=== PATIENT | male | born 1940 | race Caucasian/White ===

== ENCOUNTER 2017-12-05 23:53 | Emergency (ER) | payer MEDICARE ==
[2017-12-06 00:04] VITALS: TEMP 97
[2017-12-06] MEDS ORDERED: NITROGLYCERIN SL TABS 0.4 MG TAB SUBLINGUAL STA (00:11)
--- NOTE | 2017-12-06 00:18 | ED ---
Extremity Problem HPI - General Source: patient, family Mode of arrival: ambulatory Limitations: no limitations - History of Present Illness Complaint: extremity pain Onset/Timin -: hour(s) Location: left, upper extremity History of Same: No Radiation: none Quality: aching Consistency: intermittent Improves with: nothing Worsens with: nothing Associated Symptoms: denies other symptoms <Osmel Ramirez - Last Filed: 12/06/17 01:01> <Luiz Thornton - Last Filed: 12/06/17 04:36> - General Chief complaint: Extremity Problem,Nontraumatic Stated complaint: L Arm/Shoulder Pain Time Seen by Provider: 12/06/17 00:06 - History of Present Illness Initial comments: This patient is a 77-year-old man presenting to be evaluated for pain which is affecting his left upper extremity from the shoulder to approximately the elbow. He states that the pain came on around 10 PM tonight while he was watching in [employer] program on television. He characterizes the pain as an aching, dull, and intermittent. He states that it lasts about 30-60 seconds at a time. He has not noted any factors that reproduce the pain, nor any worsening or relieving factors. He has not had any associated symptoms. The pain is not present during my evaluation. He does state that he had seen urology here, Dr. Jaramillo, and had a stress test a number of months ago that was normal. He does state that his father, sister, and brother have had heart attacks. The patient has no smoking history. Patient states that he took 2 Tylenol at home without any real change. He did take a full size aspirin without noting much difference. Mr. Alvarado furthermore denies any recent injury. He states that he has not done any heavy lifting with the left arm. He did play pickle ball this morning but states she uses his right arm for that. (Osmel Ramirez) - Related Data Home Medications Medication Instructions Recorded Confirmed Chondratian Glucosamine PO DAILY 02/19/15 02/19/15 Docusate Sodium [Dulcolax Stool 100 mg PO BID 02/19/15 02/19/15 Softener] Dutasteride [Avodart] 0.5 mg PO DAILY 02/19/15 02/19/15 Tamsulosin [Flomax] 0.4 mg PO DAILY 02/19/15 02/19/15 traMADol HCl [Ultram] 50 mg PO Q4H PRN 02/19/15 02/19/15 Allergies Allergy/AdvReac Type Severity Reaction Status Date / Time No Known Allergies Allergy Verified 12/06/17 00:01 Review of Systems ROS Other: All systems not noted in ROS Statement are negative. Constitutional: Denies: fever, chills Respiratory: Denies: cough, dyspnea Cardiovascular: Denies: chest pain, palpitations, dyspnea on exertion, edema, syncope Gastrointestinal: Denies: abdominal pain, nausea, vomiting Genitourinary: Denies: dysuria, hematuria Musculoskeletal: Reports: as per HPI. Denies: back pain Skin: Denies: rash Neurological: Denies: headache, weakness, numbness <Osmel Ramirez - Last Filed: 12/06/17 01:01> ROS Other: All systems not noted in ROS Statement are negative. <Luiz Thornton - Last Filed: 12/06/17 04:36> ROS Statement: Those systems with pertinent positive or pertinent negative responses have been documented in the HPI. Past Medical History Past Medical History: Prostate Disorder History of Any Multi-Drug Resistant Organisms: None Reported Past Surgical History: Hernia Repair Past Psychological History: No Psychological Hx Reported Smoking Status: Never smoker Past Alcohol Use History: None Reported Past Drug Use History: None Reported <Osmel Ramirez - Last Filed: 12/06/17 01:01> General Exam Limitations: no limitations General appearance: alert, in no apparent distress Head exam: Present: atraumatic, normocephalic Eye exam: Present: normal appearance. Absent: scleral icterus, conjunctival injection Neck exam: Present: normal inspection, full ROM Respiratory exam: Present: normal lung sounds bilaterally. Absent: respiratory distress, wheezes, rales, rhonchi, stridor Cardiovascular Exam: Present: normal rhythm, bradycardia (Rate approximately 56 bpm), normal heart sounds. Absent: systolic murmur, diastolic murmur, rubs, gallop GI/Abdominal exam: Present: soft. Absent: distended, tenderness, guarding, rebound, rigid, mass Extremities exam: Present: normal inspection, normal capillary refill. Absent: pedal edema, calf tenderness Left General: Present: normal inspection Shoulder Exam: Present: normal inspection, full ROM. Absent: tenderness, swelling, abrasion Upper Arm exam: Present: normal inspection, full ROM. Absent: tenderness, swelling, abrasion, laceration Elbow exam: Present: normal inspection, full ROM. Absent: tenderness, swelling , abrasion, laceration, ecchymosis Neuro motor exam: Present: wrist extension intact, thumb opposition intact, fingers 2-5 abduction intact Neurosensory exam: Present: radial nerve intact, ulnar nerve intact, median nerve intact Vascular: Present: normal capillary refill, radial pulse (Normal) Back exam: Present: normal inspection Neurological exam: Present: alert, normal gait. Absent: motor sensory deficit Skin exam: Present: warm, dry, intact, normal color. Absent: rash <Osmel Ramirez - Last Filed: 12/06/17 01:01> Course <Osmel Ramirez - Last Filed: 12/06/17 01:01> <Luiz Thornton - Last Filed: 12/06/17 04:36> Vital Signs 12/06/17 12/06/17 12/06/17 00:01 00:36 00:45 Temperature 97.0 F L Pulse Rate 52 L Respiratory 18 Rate Blood Pressure 136/66 128/75 108/60 O2 Sat by Pulse 95 Oximetry - Reevaluation(s) Reevaluation #1: 12/06/17 04:35 The patient was endorsed to me by Dr. Ramirez at our shift change. This was pending a repeat troponin which didn't have been normal. Patient has had extensive cardiac workup which was negative a far patient will be discharged with follow-up with his doctor (Luiz Thornton) Medical Decision Making - Lab Data Result diagrams: 12/06/17 00:28 - EKG Data -: EKG Interpreted by Me EKG shows normal: sinus rhythm, axis (Normal), intervals (Normal), QRS complexes (Normal), ST-T waves (Normal) Rate: bradycardia (Rate approximate 50 bpm) <Osmel Ramirez - Last Filed: 12/06/17 01:01> - Lab Data Result diagrams: 12/06/17 00:28 12/06/17 00:28 <Luiz Thornton - Last Filed: 12/06/17 04:36> - Lab Data Lab Results 12/06/17 12/06/17 12/06/17 Range/Units 00:28 00:28 00:28 WBC 7.6 (3.8-10.6) k/uL RBC 5.12 (4.30-5.90) m/uL Hgb 15.4 (13.0-17.5) gm/dL Hct 46.6 (39.0-53.0) % MCV 91.0 (80.0-100.0) fL MCH 30.1 (25.0-35.0) pg MCHC 33.1 (31.0-37.0) g/dL RDW 14.8 (11.5-15.5) % Plt Count 256 (150-450) k/uL Neutrophils % 42 % Lymphocytes % 45 % Monocytes % 6 % Eosinophils % 3 % Basophils % 1 % Neutrophils # 3.2 (1.3-7.7) k/uL Lymphocytes # 3.4 (1.0-4.8) k/uL Monocytes # 0.5 (0-1.0) k/uL Eosinophils # 0.2 (0-0.7) k/uL Basophils # 0.1 (0-0.2) k/uL PT (9.0-12.0) sec INR (<1.2) APTT (22.0-30.0) sec Sodium 141 (137-145) mmol/L Potassium 4.9 (3.5-5.1) mmol/L Chloride 105 (98-107) mmol/L Carbon Dioxide 27 (22-30) mmol/L Anion Gap 9 mmol/L BUN 20 (9-20) mg/dL Creatinine 1.00 (0.66-1.25) mg/dL Est GFR (MDRD) Af Amer >60 (>60 ml/min/1.73 sqM) Est GFR (MDRD) Non-Af >60 (>60 ml/min/1.73 sqM) Glucose 95 (74-99) mg/dL Calcium 9.3 (8.4-10.2) mg/dL Magnesium 2.1 (1.6-2.3) mg/dL Total Bilirubin 0.5 (0.2-1.3) mg/dL AST 37 (17-59) U/L ALT 44 (21-72) U/L Alkaline Phosphatase 67 (38-126) U/L Total Creatine Kinase 167 (55-170) U/L CK-MB (CK-2) 4.3 H* (0.0-2.4) ng/mL CK-MB (CK-2) Rel Index 2.6 Troponin I <0.012 (0.000-0.034) ng/mL Total Protein 6.7 (6.3-8.2) g/dL Albumin 3.8 (3.5-5.0) g/dL 12/06/17 12/06/17 Range/Units 00:28 03:10 WBC (3.8-10.6) k/uL RBC (4.30-5.90) m/uL Hgb (13.0-17.5) gm/dL Hct (39.0-53.0) % MCV (80.0-100.0) fL MCH (25.0-35.0) pg MCHC (31.0-37.0) g/dL RDW (11.5-15.5) % Plt Count (150-450) k/uL Neutrophils % % Lymphocytes % % Monocytes % % Eosinophils % % Basophils % % Neutrophils # (1.3-7.7) k/uL Lymphocytes # (1.0-4.8) k/uL Monocytes # (0-1.0) k/uL Eosinophils # (0-0.7) k/uL Basophils # (0-0.2) k/uL PT 10.7 (9.0-12.0) sec INR 1.1 (<1.2) APTT 23.6 (22.0-30.0) sec Sodium (137-145) mmol/L Potassium (3.5-5.1) mmol/L Chloride (98-107) mmol/L Carbon Dioxide (22-30) mmol/L Anion Gap mmol/L BUN (9-20) mg/dL Creatinine (0.66-1.25) mg/dL Est GFR (MDRD) Af Amer (>60 ml/min/1.73 sqM) Est GFR (MDRD) Non-Af (>60 ml/min/1.73 sqM) Glucose (74-99) mg/dL Calcium (8.4-10.2) mg/dL Magnesium (1.6-2.3) mg/dL Total Bilirubin (0.2-1.3) mg/dL AST (17-59) U/L ALT (21-72) U/L Alkaline Phosphatase (38-126) U/L Total Creatine Kinase (55-170) U/L CK-MB (CK-2) (0.0-2.4) ng/mL CK-MB (CK-2) Rel Index Troponin I <0.012 (0.000-0.034) ng/mL Total Protein (6.3-8.2) g/dL Albumin (3.5-5.0) g/dL Disposition <Osmle Ramirez - Last Filed: 12/06/17 01:01> <Luiz Thornton - Last Filed: 12/06/17 04:36> Clinical Impression: Left arm pain Disposition: HOME SELF-CARE Condition: Good Instructions: Arm Pain (ED) Referrals: Jovana Silva MD [Primary Care Provider] - 1-2 days
[2017-12-06 00:47] LABS: Basophils # (A) 0.1 k/uL (0-0.2); Basophils % (A) 1 %; Eosinophils # (A) 0.2 k/uL (0-0.7); Eosinophils % (A) 3 %; HCT 46.6 % (39.0-53.0); HGB 15.4 gm/dL (13.0-17.5); Lymphocytes # (A) 3.4 k/uL (1.0-4.8); Lymphocytes % (A) 45 %; MCH 30.1 pg (25.0-35.0); MCHC 33.1 g/dL (31.0-37.0); Mean Platelet Volume 7.9; Monocytes # (A) 0.5 k/uL (0-1.0); Monocytes % (A) 6 %; Neutrophils # (A) 3.2 k/uL (1.3-7.7); Neutrophils % (A) 42 %; Platelet Count 256 k/uL (150-450); RBC 5.12 m/uL (4.30-5.90); RDW 14.8 % (11.5-15.5); WBC 7.6 k/uL (3.8-10.6)
[2017-12-06 00:58] LABS: ALT 44 U/L (21-72); AST 37 U/L (17-59); Albumin 3.8 g/dL (3.5-5.0); Alkaline Phosphatase 67 U/L (38-126); Anion Gap 9 mmol/L; Blood Urea Nitrogen 20 mg/dL (9-20); Calcium 9.3 mg/dL (8.4-10.2); Carbon Dioxide 27 mmol/L (22-30); Chloride 105 mmol/L (98-107); Glucose 95 mg/dL (74-99); Magnesium 2.1 mg/dL (1.6-2.3); Potassium 4.9 mmol/L (3.5-5.1); Sodium 141 mmol/L (137-145); Total Bilirubin 0.5 mg/dL (0.2-1.3); Total Protein 6.7 g/dL (6.3-8.2)
[2017-12-06 01:03] LABS: INR 1.1 (<1.2); Partial Thromboplastin Time 23.6 sec (22.0-30.0); Prothrombin Time 10.7 sec (9.0-12.0)
[2017-12-06 01:08] LABS: Creatine Kinase 167 U/L (55-170)
--- NOTE | 2017-12-06 01:09 | XR ---
EXAMINATION TYPE: XR chest 1V portable DATE OF EXAM: 12/06/2017 COMPARISON: NONE HISTORY: Chest pain TECHNIQUE: Single frontal view of the chest is obtained. FINDINGS: There is a relatively poor inspiration. Heart size is normal. There are no hilar masses. T here is probably a minimal infiltrate in the left lower lobe. There are chest leads. IMPRESSION: This probably a minimal left lower lobe infiltrate. No heart failure seen.
[2017-12-06 01:21] LABS: Troponin I <0.012 ng/mL (0.000-0.034)
[2017-12-06 01:23] LABS: Creatine Kinase MB 4.3 ng/mL (0.0-2.4)
[2017-12-06 04:48] VITALS: BP 115/63; PULSE 54; RESP 14
== END 2017-12-06 04:46 | disposition home or self-care (01) ==
LOC: EC 23:53
DX: M79.602 Pain in left arm (principal); Z79.899 Other long term (current) drug therapy
CPT/HCPCS: 36415; 71045; 80053; 82550; 82553; 83735; 84484; 85025; 85610; 85730; 93005; 99284

== ENCOUNTER → 2022-04-30 | Outpatient (CLI) | payer MEDICARE ==
--- NOTE | 2022-05-01 05:27 | MR ---
EXAMINATION TYPE: MR lumbar spine wo con DATE OF EXAM: 04/30/2022 COMPARISON: None HISTORY: Low back pain, sciatica Multiplanar multiecho imaging of the lumbar spine with no contrast. The vertebra have normal alignment. There is degenerative disc space narrowing throughout the lumbar spine. There is posterior disc herniation at osteophyte formation at the L3-4 level. There is facet a rthropathy and resultant severe bony spinal stenosis. The neural foramina are fairly well maintained. No compression fracture. There is no evidence of focal bone destruction. There is no lumbar paraspin al mass. The upper sacroiliac joints appear intact. IMPRESSION: Multilevel spondylotic changes. There is very severe spinal stenosis at L3-4 due to posterior disc he rniation and osteophyte formation and facet arthropathy.
== END | disposition home or self-care (01) ==
LOC: RADMRIMAIN 09:31
PROVIDERS: ATTEND Physical Medicine & Rehabilitation
DX: M47.26 Other spondylosis with radiculopathy, lumbar region (principal); M51.16 Intervertebral disc disorders with radiculopathy, lumbar region; M48.061 Spinal stenosis, lumbar region without neurogenic claudication; M99.73 Connective tissue and disc stenosis of intervertebral foramina of lumbar region
CPT/HCPCS: 72148

== ENCOUNTER 2022-05-10 07:42 | Inpatient (IN) | payer MEDICARE ==
[2022-05-10] MEDS ORDERED: SODIUM CHLORIDE 0.9% 500 ML 500 ML IV STA (08:32)
--- NOTE | 2022-05-10 08:39 | ED ---
General Adult HPI - General Source: patient, EMS, RN notes reviewed, old records reviewed Mode of arrival: EMS Limitations: no limitations - History of Present Illness -: week(s) (2) Location: back Radiation: extremity (b/l lower extremities), distal Severity scale (1-10): 0 Consistency: intermittent Improves with: immobilization Worsens with: movement Associated Symptoms: fever/chills, shortness of breath, syncope <Zach Fair - Last Filed: 05/10/22 10:26> <Luiz Chauhan - Last Filed: 05/10/22 13:10> - General Chief complaint: Shortness of Breath Stated complaint: R06.02 Shortness of breath Time Seen by Provider: 05/10/22 08:20 - History of Present Illness Initial comments: This is a well-appearing 82-year-old pleasant male that presents with his with complaints of 2 weeks of chronic back pain radiating down both his legs. He states he has an upcoming appointment for an epidural injection on the with Dr. Pascual and back surgery scheduled Dr. Lopez on May 30. Patient states that today he had an episode of near syncope around 7:30. He states that he walked into the kitchen and felt like he was going to pass out so he sat on the ground. states that she found him and he seemed to be unresponsive with his eyes closed. Patient states that he's also noted noticed bilateral lower extremity swelling and has been short of breath. He has seen Dr. Shields in the p ast and had an echo approximately one year ago. No history of congestive heart failure. He states that he believes his shortness of breath is related to pain. He states that he has been sedentary sitting in a recliner and was hoping to get epidural injection today. (Zach Fair) - Related Data Home Medications Medication Instructions Recorded Confirmed Dutasteride [Avodart] 0.5 mg PO HS 02/19/15 05/10/22 Tamsulosin [Flomax] 0.4 mg PO HS 02/19/15 05/10/22 Ascorbic Acid [Vitamin C] 500 mg PO DAILY 05/10/22 05/10/22 Atorvastatin [Lipitor] 10 mg PO DAILY 05/10/22 05/10/22 Cholecalciferol [Vitamin D3 (25 25 mcg PO DAILY 05/10/22 05/10/22 Mcg = 1000 Iu)] Glucosamine Sulfate 1,000 mg PO DAILY 05/10/22 05/10/22 HYDROcodone/APAP 5-325MG [Tilly 0.5 tab PO QID 05/10/22 05/10/22 5-325] Sennosides [Senokot] 8.6 - 17.2 mg PO DAILY PRN 05/10/22 05/10/22 Zinc Sulfate [Orazinc] 25 mg PO DAILY 05/10/22 05/10/22 polyethylene glycoL 3350 [Miralax] 17 gm PO DAILY PRN 05/10/22 05/10/22 Allergies Allergy/AdvReac Type Severity Reaction Status Date / Time No Known Allergies Allergy Verified 05/10/22 11:18 Review of Systems ROS Other: All systems not noted in ROS Statement are negative. <Zach Fair - Last Filed: 05/10/22 10:26> ROS Other: All systems not noted in ROS Statement are negative. <Luiz Chauhan - Last Filed: 05/10/22 13:10> ROS Statement: Those systems with pertinent positive or pertinent negative responses have been documented in the HPI. Past Medical History Past Medical History: Prostate Disorder History of Any Multi-Drug Resistant Organisms: None Reported Past Surgical History: Hernia Repair Past Psychological History: No Psychological Hx Reported Past Alcohol Use History: None Reported Past Drug Use History: None Reported <Zach Fair - Last Filed: 05/10/22 10:26> General Exam Limitations: no limitations General appearance: alert, in no apparent distress ENT exam: Present: mucous membranes moist Neck exam: Present: normal inspection, full ROM. Absent: tenderness, meningismus Respiratory exam: Present: rales (bilateral bases). Absent: respiratory distress, accessory muscle use Cardiovascular Exam: Present: regular rate GI/Abdominal exam: Present: soft. Absent: distended, tenderness Extremities exam: Present: normal inspection, normal capillary refill. Absent: tenderness, pedal edema, calf tenderness Back exam: Present: normal inspection. Absent: tenderness, CVA tenderness (R), CVA tenderness (L), paraspinal tenderness, vertebral tenderness, rash noted Expanded Back exam: Absent: saddle anesthesia Back exam: Negative Straight Leg Raising: Left, Right Neurological exam: Present: alert, oriented X3, normal gait (with walker) Psychiatric exam: Present: normal affect, normal mood Skin exam: Present: warm, dry, normal color. Absent: cyanosis, diaphoretic, erythema, petechiae, pallor <Zach Fair - Last Filed: 05/10/22 10:26> Course Vital Signs 05/10/22 05/10/22 05/10/22 08:01 09:12 09:15 Temperature 98.1 F Pulse Rate 83 77 74 Respiratory 20 14 16 Rate Blood Pressure 120/73 108/72 108/79 O2 Sat by Pulse 95 93 L Oximetry 05/10/22 05/10/22 05/10/22 09:20 09:30 10:00 Temperature Pulse Rate 72 75 72 Respiratory 16 16 17 Rate Blood Pressure 108/72 108/72 108/79 O2 Sat by Pulse 95 Oximetry EKG Findings - EKG Results: EKG: sinus rhythm (Ventricular rate of 77, TN interval 0.184, QRS 0.92, QTC 0.432) <Zach Fair - Last Filed: 05/10/22 10:26> Medical Decision Making - Lab Data Result diagrams: 05/10/22 08:32 05/10/22 08:32 <Zach Fair - Last Filed: 05/10/22 10:26> - Lab Data Result diagrams: 05/10/22 08:32 05/10/22 08:32 <Luiz Chauhan - Last Filed: 05/10/22 13:10> - Medical Decision Making No evidence of leukocytosis. D-dimer is elevated at 13.61 and troponin is elevated at 0.250. Patient was sent for CT and a chest abdomen and pelvis and was found to have bilateral pulmonary embolisms. He was started on high-dose heparin. He will be admitted to cardiology and pulmonary consults. ( Zach Fair) Patient had been started on high-dose heparin, echo has been ordered. I did discuss case with the admitting physician Dr. Das with the nitro man Dr. Cami pritchard with the inspector open die Dr. Dailey. Echo results are pending. The CT does show signs of right heart strain and a troponin is elevated. (Luiz Chauhan) - Lab Data Lab Results 05/10/22 05/10/22 05/10/22 Range/Units 08:32 08:32 08:32 WBC 6.9 (3.8-10.6) k/uL RBC 4.62 (4.30-5.90) m/uL Hgb 14.2 (13.0-17.5) gm/dL Hct 43.6 (39.0-53.0) % MCV 94.3 (80.0-100.0) fL MCH 30.8 (25.0-35.0) pg MCHC 32.7 (31.0-37.0) g/dL RDW 12.6 (11.5-15.5) % Plt Count 311 (150-450) k/uL MPV 7.8 Neutrophils % 72 % Lymphocytes % 16 % Monocytes % 8 % Eosinophils % 2 % Basophils % 1 % Neutrophils # 4.9 (1.3-7.7) k/uL Lymphocytes # 1.1 (1.0-4.8) k/uL Monocytes # 0.5 (0-1.0) k/uL Eosinophils # 0.1 (0-0.7) k/uL Basophils # 0.1 (0-0.2) k/uL PT 11.6 (9.0-12.0) sec INR 1.1 (<1.2) APTT 25.2 (22.0-30.0) sec D-Dimer 13.61 H (<0.60) mg/L FEU Sodium 134 L (137-145) mmol/L Potassium 4.4 (3.5-5.1) mmol/L Chloride 101 (98-107) mmol/L Carbon Dioxide 25 (22-30) mmol/L Anion Gap 8 mmol/L BUN 10 (9-20) mg/dL Creatinine 0.82 (0.66-1.25) mg/dL Est GFR (CKD-EPI)AfAm >90 (>60 ml/min/1.73 sqM) Est GFR (CKD-EPI)NonAf 84 (>60 ml/min/1.73 sqM) Glucose 125 H (74-99) mg/dL Plasma Lactic Acid Dmitry (0.7-2.0) mmol/L Calcium 8.4 (8.4-10.2) mg/dL Magnesium 2.1 (1.6-2.3) mg/dL Total Bilirubin 1.0 (0.2-1.3) mg/dL AST 38 (17-59) U/L ALT 40 (4-49) U/L Alkaline Phosphatase 91 (38-126) U/L Troponin I (0.000-0.034) ng/mL NT-Pro-B Natriuret Pep pg/mL Total Protein 6.4 (6.3-8.2) g/dL Albumin 3.1 L (3.5-5.0) g/dL 05/10/22 05/10/22 05/10/22 Range/Units 08:32 08:32 08:32 WBC (3.8-10.6) k/uL RBC (4.30-5.90) m/uL Hgb (13.0-17.5) gm/dL Hct (39.0-53.0) % MCV (80.0-100.0) fL MCH (25.0-35.0) pg MCHC (31.0-37.0) g/dL RDW (11.5-15.5) % Plt Count (150-450) k/uL MPV Neutrophils % % Lymphocytes % % Monocytes % % Eosinophils % % Basophils % % Neutrophils # (1.3-7.7) k/uL Lymphocytes # (1.0-4.8) k/uL Monocytes # (0-1.0) k/uL Eosinophils # (0-0.7) k/uL Basophils # (0-0.2) k/uL PT (9.0-12.0) sec INR (<1.2) APTT (22.0-30.0) sec D-Dimer (<0.60) mg/L FEU Sodium (137-145) mmol/L Potassium (3.5-5.1) mmol/L Chloride (98-107) mmol/L Carbon Dioxide (22-30) mmol/L Anion Gap mmol/L BUN (9-20) mg/dL Creatinine (0.66-1.25) mg/dL Est GFR (CKD-EPI)AfAm (>60 ml/min/1.73 sqM) Est GFR (CKD-EPI)NonAf (>60 ml/min/1.73 sqM) Glucose (74-99) mg/dL Plasma Lactic Acid Dmitry 0.9 (0.7-2.0) mmol/L Calcium (8.4-10.2) mg/dL Magnesium (1.6-2.3) mg/dL Total Bilirubin (0.2-1.3) mg/dL AST (17-59) U/L ALT (4-49) U/L Alkaline Phosphatase (38-126) U/L Troponin I 0.250 H* (0.000-0.034) ng/mL NT-Pro-B Natriuret Pep 2130 pg/mL Total Protein (6.3-8.2) g/dL Albumin (3.5-5.0) g/dL Critical Care Time Critical Care Time: Yes Total Critical Care Time: 32 (PE, heparin gtt, ICU consult) <Zach Fair - Last Filed: 05/10/22 10:26> Disposition Decision Date: 05/10/22 Decision Time: 10:19 <Zach Fair - Last Filed: 05/10/22 10:26> <Luiz Chauhan - Last Filed: 05/10/22 13:10> Clinical Impression: Bilateral pulmonary embolism, Elevated troponin Disposition: ADMITTED IP TO THIS [facility] Condition: Serious
[2022-05-10 08:55] LABS: Basophils # (A) 0.1 k/uL (0-0.2); Basophils % (A) 1 %; Eosinophils # (A) 0.1 k/uL (0-0.7); Eosinophils % (A) 2 %; HCT 43.6 % (39.0-53.0); HGB 14.2 gm/dL (13.0-17.5); Lymphocytes # (A) 1.1 k/uL (1.0-4.8); Lymphocytes % (A) 16 %; MCH 30.8 pg (25.0-35.0); MCHC 32.7 g/dL (31.0-37.0); MCV 94.3 fL (80.0-100.0); Mean Platelet Volume 7.8; Monocytes # (A) 0.5 k/uL (0-1.0); Monocytes % (A) 8 %; Neutrophils # (A) 4.9 k/uL (1.3-7.7); Neutrophils % (A) 72 %; Platelet Count 311 k/uL (150-450); RBC 4.62 m/uL (4.30-5.90); RDW 12.6 % (11.5-15.5); WBC 6.9 k/uL (3.8-10.6)
[2022-05-10 09:08] LABS: ALT 40 U/L (4-49); AST 38 U/L (17-59); Albumin 3.1 g/dL (3.5-5.0); Alkaline Phosphatase 91 U/L (38-126); Anion Gap 8 mmol/L; Calcium 8.4 mg/dL (8.4-10.2); Carbon Dioxide 25 mmol/L (22-30); Chloride 101 mmol/L (98-107); Glucose 125 mg/dL (74-99); Magnesium 2.1 mg/dL (1.6-2.3); Potassium 4.4 mmol/L (3.5-5.1); Sodium 134 mmol/L (137-145)
[2022-05-10 09:09] LABS: African American GFR (CKD) >90 (>60 ml/min/1.73 sqM); Blood Urea Nitrogen 10 mg/dL (9-20); Non-African American GFR(CKD) 84 (>60 ml/min/1.73 sqM); Total Protein 6.4 g/dL (6.3-8.2)
[2022-05-10 09:17] LABS: INR 1.1 (<1.2); Partial Thromboplastin Time 25.2 sec (22.0-30.0); Prothrombin Time 11.6 sec (9.0-12.0)
[2022-05-10] MEDS ORDERED: HEPARIN SODIUM 1,000 UN/ML (10ML VL) IV ONE (10:12)
[2022-05-10] MEDS ORDERED: HEPARIN SODIUM 1,000 UN/ML (10ML VL) IV PRN (10:12)
[2022-05-10] MEDS ORDERED: NALOXONE 0.4 MG/ML 1 ML VIAL IV PRN (10:20)
[2022-05-10] MEDS: HEPARIN SOD,PORK IN 0.45% NACL 25,000 UNIT in 0.45% NACL 1 250ML.BAG IV SCH (10:30)
[2022-05-10] MEDS: PANTOPRAZOLE 40 MG/10 ML VIAL IV SCH (10:40)
--- NOTE | 2022-05-10 10:41 | CT ---
EXAMINATION TYPE: CT angio thor/abd pel aorta DATE OF EXAM: 05/10/2022 INDICATION: Shortness of breath, elevated d-dimer, back pain CT DLP: 1343.7 mGy.cm Automated Exposure Control for Dose Reduction was Utilized. TECHNIQUE AND CONTRAST: CT scan of the chest, abdomen and the pelvis is performed without and with IV Contrast, patient injec huong with 100 mL of Isovue 370. 3-D reconstruction images were generated on an independent workstation and reviewed. COMPARISON: CT dated 10/19/2010 FINDINGS: Extensive bilateral pulmonary emboli extending from the distal aspect of the main pulmonary artery bi laterally into the adjacent lobar, segmental and proximal subsegmental arteries. No definite filling defect seen within the proximal portion of the pulmonary arteries or the pulmonary trunk. The right p ulmonary artery measures 2.9 cm and the pulmonary artery measures 2.9 cm. Dilated right atrium and ri ght ventricle with straightening of the interventricular septum suggestive of a right cardiac strain. Scattered arterial and coronary atherosclerotic calcifications. Dilated ascending aorta measuring up to 4 cm. Atherosclerotic plaques and calcifications are seen within the abdominal aorta. Otherwise no rmal caliber and enhancement of the thoracic and abdominal aorta as well as major mediastinal, abdomi nal and pelvic artery without significant stenosis, occlusion, dissection or aneurysm. 2 arteries sup plying the right kidney. A small accessory artery is seen supplying the upper pole of the left kidney . Bilateral lower lobar subsegmental pulmonary atelectasis more on the left side, developing pulmonary infarction cannot be excluded. Mild fibrotic changes seen in the right lung apex. Patent trachea and main bronchi. Small left pleural effusion. No pericardial effusion. 11 mm precarinal lymph node. No o ther pathologically enlarged lymph nodes in the chest, abdomen or the pelvis. Nodular outlines of the liver. No definite hepatic focal lesion. Unremarkable gallbladder, spleen, ad renals and kidneys. Hypodensity is in the pancreatic body measuring 2.1 cm which could represent a pa ncreatic cyst/PMM. Further MRI assessment can be considered. Multiple calculi are seen within the uri nary bladder measuring up to 14 mm. Slightly thickened urinary bladder wall, please correlate with ur inalysis results. Prostatic concretion. Small slight hiatal hernia, otherwise unremarkable nondistended stomach, duoden um and small bowel. Scattered segments of mild colonic wall thickening, nonspecific. Uncomplicated co lonic diverticulosis. Fecal loading of the colon. Normal appendix. Degenerative changes of the lower thoracic and lower lumbar spine. Retrolisthesis of L5 over S1. No gross aggressive bone lesion. IMPRESSION: Extensive bilateral pulmonary emboli with signs of right cardiac strain as described above. No eviden ce of aortic dissection, stenosis, occlusion or aneurysm. Other findings as described above.
[2022-05-10] MEDS ORDERED: polyethylene glycoL 3350 17 GM POWD.PACK PO PRN (13:03)
[2022-05-10] MEDS: HYDROmorphone 0.5 MG/0.5 ML SYRINGE IVP PRN ×3 (13:45→23:00)
--- NOTE | 2022-05-10 14:32 | P.CNPUL ---
History of Present Illness Consult date: 05/10/22 Requesting physician: Jovana Silva Reason for consult: pulmonary embolism Chief complaint: Passing out. History of present illness: This is an 82-year-old white male with history of multiple medical problems including dyslipidemia, enlarged prostate, and herniated disease involving the lumbar spine. [facility], and he is supposed to have an epidural injection on the by Dr. Pascual. Patient is also scheduled to have back surgery on May 30. Early this morning, the patient had an episode of syncope as he was walking to the kitchen, patient felt l ightheaded, and according to the he passed out for about 2 minutes. He was unresponsive and his eyes were closed. Patient was brought into the ER, workup included a CT angiogram of the chest, and it showed evidence of extensive bilateral pulmonary emboli with signs of right cardiac strain. Patient will be admitted to the ICU, he is yet to be seen by cardiology or vascular surgery for possible ekos procedure, and the meantime the patient is on heparin. During my evaluation, the patient had no chest pain, no shortness of breath, no palpitations, he felt fine his only complaint was chronic low back pain, being addressed by [facility] Review of Systems Constitutional: Negative HEENT: Negative Cardiopulmonary as noted in HPI GI: Negative Genitourinary: Negative, patient does have history of prostatism under control. Muscular skeletal chronic low back pain Endocrine: Negative Hematologic: Negative Neurologic as noted in HPI Psychiatric: Negative Skin: Negative Musculoskeletal: Negative Immunologic: Negative Past Medical History Past Medical History: Prostate Disorder History of Any Multi-Drug Resistant Organisms: None Reported Past Surgical History: Hernia Repair Past Psychological History: No Psychological Hx Reported Past Alcohol Use History: None Reported Past Drug Use History: None Reported Medications and Allergies Home Medications Medication Instructions Recorded Confirmed Type Dutasteride [Avodart] 0.5 mg PO HS 02/19/15 05/10/22 History Tamsulosin [Flomax] 0.4 mg PO HS 02/19/15 05/10/22 History Ascorbic Acid [Vitamin C] 500 mg PO DAILY 05/10/22 05/10/22 History Atorvastatin [Lipitor] 10 mg PO DAILY 05/10/22 05/10/22 History Cholecalciferol [Vitamin D3 (25 25 mcg PO DAILY 05/10/22 05/10/22 History Mcg = 1000 Iu)] Glucosamine Sulfate 1,000 mg PO DAILY 05/10/22 05/10/22 History HYDROcodone/APAP 5-325MG [[place] 0.5 tab PO QID 05/10/22 05/10/22 History 5-325] Sennosides [Senokot] 8.6 - 17.2 mg PO DAILY PRN 05/10/22 05/10/22 History Zinc Sulfate [Orazinc] 25 mg PO DAILY 05/10/22 05/10/22 History polyethylene glycoL 3350 [Miralax] 17 gm PO DAILY PRN 05/10/22 05/10/22 History Allergies Allergy/AdvReac Type Severity Reaction Status Date / Time No Known Allergies Allergy Verified 05/10/22 11:18 Physical Exam Vitals: Vital Signs Temp Pulse Resp BP Pulse Ox 05/10/22 10:00 72 17 108/79 95 05/10/22 09:30 75 16 108/72 05/10/22 09:20 72 16 108/72 05/10/22 09:15 74 16 108/79 93 L 05/10/22 09:12 77 14 108/72 05/10/22 08:01 98.1 F 83 20 120/73 95 Intake and Output 05/09/22 05/10/22 05/10/22 22:59 06:59 14:59 Other: Weight 77.111 kg Physical Exam: Revealed 82-year-old white male in no distress, on 3 L nasal cannula O2 sats is 95%. Head: Atraumatic, normocephalic. HEENT:[Neck is supple.] [No neck masses.] [No thyromegaly.] [No JVD.] Chest: [Clear throughout, no crackles, no rhonchi, no wheezes.] Cardiac Exam: [Normal S1 and S2, no S3 gallop, no murmur.] Abdomen: [Soft, nontender, no megaly, no rebound, no guarding, normal bowel sounds.] Extremities: [No clubbing, no edema, no cyanosis.] Neurological Exam: [No focal neurologic deficit.] Alert and oriented 3. Psychiatric: Normal mood, affect and normal mental status examination. Skin: No rashes. Results - Laboratory Findings CBC and BMP: 05/10/22 08:32 06/16/22 08:32 PT/INR, D-dimer PT 11.6 sec (9.0-12.0) 05/10/22 08:32 INR 1.1 (<1.2) 05/10/22 08:32 D-Dimer 13.61 mg/L FEU (<0.60) H 05/10/22 08:32 Abnormal lab findings: Abnormal Labs 05/10/22 05/10/22 05/10/22 08:32 08:32 08:32 D-Dimer 13.61 H Sodium 134 L Glucose 125 H Troponin I 0.250 H* Albumin 3.1 L - Diagnostic Findings CT scan - chest: image reviewed (As noted in HPI.) Assessment and Plan Assessment: Impression: Acute massive bilateral pulmonary emboli Suspect some component of right ventricular strain History of benign prostatic hypertrophy Dyslipidemia Degenerative lumbar disc disease and chronic low back pain Syncope secondary to acute massive pulmonary emboli. Recommendation: Continue heparin Agree with admitting the patient to ICU Consult vascular surgery/cardiology for EKOS thrombolytic therapy Resume home meds Transition patient to oral anticoagulations therapy and he'll probably be on it for lifetime after his procedure above. We'll continue to follow closely. Time with Patient: Greater than 30
[2022-05-10 15:06] LABS: Basophils # (A) 0.1 k/uL (0-0.2); Basophils % (A) 1 %; Eosinophils # (A) 0.1 k/uL (0-0.7); Eosinophils % (A) 1 %; HCT 43.4 % (39.0-53.0); HGB 13.7 gm/dL (13.0-17.5); Lymphocytes # (A) 1.3 k/uL (1.0-4.8); Lymphocytes % (A) 19 %; MCH 30.1 pg (25.0-35.0); MCHC 31.5 g/dL (31.0-37.0); MCV 95.7 fL (80.0-100.0); Mean Platelet Volume 7.8; Monocytes # (A) 0.5 k/uL (0-1.0); Monocytes % (A) 7 %; Neutrophils # (A) 4.8 k/uL (1.3-7.7); Neutrophils % (A) 70 %; Platelet Count 312 k/uL (150-450); RBC 4.54 m/uL (4.30-5.90); RDW 12.6 % (11.5-15.5)
[2022-05-10 15:16] LABS: INR 1.2 (<1.2); Partial Thromboplastin Time 75.4 sec (22.0-30.0); Prothrombin Time 12.3 sec (9.0-12.0)
[2022-05-10 15:32] LABS: African American GFR (CKD) >90 (>60 ml/min/1.73 sqM); Anion Gap 4 mmol/L; Blood Urea Nitrogen 10 mg/dL (9-20); Carbon Dioxide 26 mmol/L (22-30); Chloride 103 mmol/L (98-107); Glucose 112 mg/dL (74-99); Non-African American GFR(CKD) 82 (>60 ml/min/1.73 sqM); Potassium 4.6 mmol/L (3.5-5.1); Sodium 133 mmol/L (137-145)
--- NOTE | 2022-05-10 16:23 | CONS ---
CONSULTATION CHIEF COMPLAINT: Near syncope. HISTORY OF PRESENT ILLNESS: This is an 82-year-old gentleman with history of prostatic hypertrophy and dyslipidemia who has developed back pain and has prolapse of the disk and has been somewhat restricted in his movements for the last 2 weeks that developed sudden onset near syncope this morning. He came to the hospital here at [facility] and had a D-dimer that was elevated at 13.6. There was mild troponin elevation, had an EKG that revealed T- wave inversions in the precordial leads with S1, Q3, T3 pattern. He went on to have a CT scan of the chest that revealed extensive bilateral pulmonary embolism that extends into the distal aspect of the main pulmonary artery bilaterally. Right atrium and right ventricle are dilated with changes suggestive of right heart strain. The patient also had coronary calcification and dilated ascending aorta measuring 4 cm. The patient appeared hemodynamically stable with a heart rate of 72 beats per minute, blood pressure 108/79, and O2 saturation of 95%. Given the extensive pulmonary embolism and the right heart strain noted, we advised the patient to undergo ECOS. This will be done later this afternoon by Dr. Wesley Tejeda. PAST MEDICAL HISTORY: Significant for dyslipidemia and prostatic hypertrophy and back pain. MEDICATIONS: Include Flomax, Senokot, Avodart, Lipitor, vitamin C, and Dickinson. ALLERGIES: No known drug allergies. FAMILY HISTORY: Negative for premature coronary artery disease. SOCIAL HISTORY: Negative for current smoking, EtOH abuse or drug abuse. REVIEW OF SYSTEMS: HEENT is unremarkable. Cardiac as described above. Respiratory as described above. GI negative. Genitourinary negative. Allergy/Immunology none. MUSCULOSKELETAL significant for arthritis. Psychosocial negative. Derm negative. Constitutional negative. Oncological negative. SATIN FINISHER significant for near syncope. EXAM: Vital signs stable. There is no jugular venous distention. Carotid upstroke is normal. There is no bruit. Chest exam reveals good air entry bilaterally. Heart exam reveals first and second heart sounds. No gallop. No murmur. No rub. Abdomen is soft, nontender. Examination of extremities did not reveal any edema. Peripheral pulses are felt. ASSESSMENT: Acute large pulmonary embolism with evidence of right heart strain. PLAN: Patient will be treated with intravenous heparin and will go for ECOS. I will switch him to oral anticoagulant after 48 hours. MMODL / IJN: [id number] /
[2022-05-10] MEDS ORDERED: ALTEPLASE 10 MG in SODIUM CHLORIDE 0.9% 90 ML IV ONE ×4 (16:30)
[2022-05-10] MEDS ORDERED: IV FLUID CONTINUATION 900 ML IV ONE (16:30)
[2022-05-10] MEDS ORDERED: HEPARIN SOD,PORK IN 0.45% NACL 25,000 UNIT in 0.45% NACL 1 250ML.BAG IV SCH ×2 (16:30)
[2022-05-10] MEDS ORDERED: SODIUM CHLORIDE 0.9% 1,000 ML IV SCH ×3 (16:30)
[2022-05-10] MEDS ORDERED: MIDAZOLAM 2 MG/2 ML VIAL IV ONE (16:58)
[2022-05-10] MEDS ORDERED: HYDROmorphone 0.5 MG/0.5 ML SYRINGE IVP ONE (17:04)
[2022-05-10] MEDS ORDERED: ALTEPLASE 2 MG VIAL (CATHFLO) IV STA (17:12)
[2022-05-10 17:33] LABS: Allen Test Performed? Yes
[2022-05-10] MEDS: SODIUM CHLORIDE 0.9% 1,000 ML IV SCH ×2 (17:39→22:28)
[2022-05-10 17:43] LABS: ABG Base Excess -1.1 mmol/L; ABG HCO3 24 mmol/L (21-25); ABG Oxygen Saturation 75.8 % (94-97); ABG PCO2 42 mmHg (35-45); ABG PH 7.37 (7.35-7.45)
[2022-05-10 17:45] LABS: ABG PO2 43 mmHg (83-108)
--- NOTE | 2022-05-10 18:06 | P.PCN ---
Description of Procedure: EKOS PROCEDURE : #1 right heart catheterization with saturation #2 placement of 2 6-Canadian introducers in the right femoral vein #3 placement of EKOS catheter into each of the pulmonary arteries through each of the 2 6-Canadian sheaths and then 2 ultrasound catheter placement through each of the pulmonary catheters. Moderate conscious sedation time was 40 minutes. Patient was administered Versed and Dilaudid. His oxygen saturation hemodynamics and EKG were monitored closely Clinical information: This gentleman has significant back discomfort and he was going for epidural injections and was quite sedentary. For the last few days he was having discomfort in both his lower extremities with some edema and today he had a near syncopal episode and was brought to the emergency room and had a diagnosis of pulmonary embolism with strain this was a submassive pulmonary embolism patient was hemodynamically stable. He was seen by my associate and advised to have any postprocedure. I spoke to the patient at length explaining to him the risks benefits options and rationale and performed procedure Description of procedure: Under strict aseptic precautions and local anesthesia to 6-Canadian introducer was placed in the right femoral artery. Through the first introducer I performed a right heart catheterization with a 6-Canadian balloon tipped catheter. The catheter was left in the right pulmonary artery and pulmonary victory 18 wire I exchanged this catheter for any EKOS catheter subsequently through the equal scatter of the ultrasound catheter was advanced. I then turned my attention to the next sheaths. The same right heart catheter was advanced into the left pulmonary artery under fluoroscopic guidance. This catheter was exchanged for a EKOS catheters. The equal scatter of the ultrasound catheter was advanced. Both the catheter positions were checked. The sheaths were sutured catheters were secured and patient will be sent to the room in a stable condition. Procedure was performed uneventfully without any complications. The findings details were discussed with the patient and his family members. The right atrial pressure was 3 mmHg, right ventricular pressure was 40 over 3. Pulmonary arterial pressure was 40/10 with a mean of 21. Pulmonary capillary wedge pressure was 9 mmHg. The pulmonary artery saturation was about 75%. The oxygen saturation by pulse oximeter for the arterial wall is 95%. Patient on the procedure well without complication. He was sent back to the ICU. He will now have TPA infusion through each of the catheters for 6 hours followed by heparin infusion and tomorrow the catheters will be taken out.
[2022-05-10 18:28] LABS: Glucose,Whole Blood 90 mg/dL (70-110)
[2022-05-10] MEDS: HYDROcodone/APAP 5-325MG 1 EACH TAB PO SCH ×2 (20:34→21:23)
[2022-05-10 20:38] LABS: Appearance,Urine Clear (Clear); Bilirubin,Urine Negative (Negative); Blood,Urine Large (Negative); Color,Urine Yellow; Glucose,Urine (UA) Negative (Negative); Ketones,Urine 1+ (Negative); Leukocyte Esterase,Urine Negative (Negative); Mucus,Urine Rare /hpf; Nitrite,Urine Negative (Negative); Protein,Urine Negative (Negative); RBC,Urine >182 /hpf (0-5); Specific Gravity,Urine 1.027 (1.001-1.035); Urobilinogen,Urine <2.0 mg/dL (<2.0); WBC,Urine 1 /hpf (0-5)
--- NOTE | 2022-05-10 20:56 | P.HPIM ---
History of Present Illness H&P Date: 05/10/22 Chief Complaint: bilateral pulmonary emboli with right ventricular strain pa ttern HISTORY OF PRESENT ILLNESS: this is an 82-year-old male with a previous medical history significant for hyperlipidemia, enlarged prostate, vitamin D deficiency, history of osteoarthritis, history of significant spondylosis of the lumbar spine has been under the care of orthopedic surgery with epidural injection and he was supposed to go for surgical intervention by Dr. Lopez he came to the office on the of this month because of increased fever and a chronic low back pain a long with not able template is much, patient has been sedentary for the past 4 weeks due to his significant pain in the back and the patient has been seen as an outpatient clinic for fever he was placed on Keflex 500 mg orally 3 times every day which I spoke with the patient about taking it off when he was seen in the office had a twelve-lead EKG for evaluation for preoperative medical clearance his EKG showed sinus rhythm without evidence of any sinus tachycardia or any right ventricular strain pattern, patient oxygen saturation was about 93% on room air, blood pressure was. Stable, patient was not complaining of any chest pain or any shortness breath that time, patient did appear to have a minimal swelling in both lower extremity is without any calf tenderness, patient went home and today he was walking to the kitchen developed to have a syncopal episode his was with him and she lowered down to the floor, patient required oxygen supplement when the EMS got there was taken to the emergency department at [facility] a blood test that showed a d-dimer elevation of 13 underwent CTA of the chest that was positive for massive bilateral pulmonary emboli his EKG showed evidence of right strain pattern he was hemodynamically stable, patient was taken to the track laborer and underwent EKOS procedure and he was admitted to the intensive care unit, patient was seen in ICU he was doing fine and he denies any chest pain he is less short of breath, he has no pleurisy at this time, patient has been stable since the procedure, this is likely related to either bilateral lower extremity DVT or pelvic floor DVT that had traveled to the pulmonary arteries and cause significant and massive PE. REVIEW OF SYSTEMS: Constitutional: positive for low-grade fever, no chills, no night sweats. No weight change. No weakness, fatigue or lethargy. No daytime sleepiness. HEENT: No headache. No blurred vision or double vision, no loss of vision. No loss of Hearing, no ringing in the ears, no dizziness. No nasal drainage or congestion. No epistaxis. No sore throat. Lungs: positive for shortness of breath, no cough, no sputum production. No wheezing. Reports dyspnea with activity. Cardiovascular: No chest pain, minimal lower extremity edema. No palpitations. No paroxysmal nocturnal dyspnea. No orthopnea. No lightheadedness or dizziness. positive for syncopal episodes. Abdominal: Reports abdominal pain. No nausea, vomiting. No diarrhea. No constipation. No bloody or tarry stools reports loss of appetite. Genitourinary: No dysuria, increased frequency, urgency. No urinary retention. Musculoskeletal: No myalgias. No muscle weakness, positive for gait dy sfunction, no frequent falls. positive for moderate to severe back pain. No neck pain. Integumentary: No wounds, no lesions. No rash or pruritus. No unusual bruising. No change in hair or nails. Neurologic: No aphasia. No facial droop. No change in mentation. No head injury. No headache. No paralysis. No paresthesia. Psychiatric: No depression. No anxiety. No mood swings. Endocrine: No abnormal blood sugars. No weight change. PAST MEDICAL HISTORY: mixed hyperlipidemia. Enlarged prostate . Vitamin D deficiency. 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 Osteoarthritis. Constipation. Insomnia. PAST SURGICAL HISTORY: right inguinal hernia repair 2012 SOCIAL HISTORY: patient is a life long nonsmoker, patient drinks occasionally, no drug use or abuse he lives with his . FAMILY HISTORY: father at age of 69 from CAD, mother at age of 64 from brain cancer, patient had one sister who at age of 60 from CAD, patient has 2 sons with no medical issues and 1 daughter no health issues. PHYSICAL EXAMINATION: General: this is an 82-year-old male who is laying down in bed in no particular distress. HEENT: Head is atraumatic, normocephalic, pupils were equal round reactive to light and recommendation, extraocular muscle movement were intact, sclera nonicteric, conjunctivae were pale, mucous membranes of the mouth are somewhat dry. Neck: Supple, no JVP, normal carotid upstroke bilaterally, no lymphadenopathy. Chest: Decreased breath sounds at the bases, few rhonchi, no expiratory wheezes, no chest wall tenderness, no intercostal retractions. Heart: First heart sound is normal, second heart sound is normal, there is no ga llop or murmur. Abdomen: Soft, nontender, nondistended, positive bowel sounds. Extremities: There is no edema no calf tenderness DP +2 bilaterally. Neurologic examination: Patient is awake alert and oriented X 3, cranial nerves II-12 appear grossly intact, muscle power were 5 out of 5 in upper extremities and 5 out of 5 in bilateral lower extremities, deep tendon reflexes normal bilaterally. ASSESSMENT AND PLAN: 1. bilateral massive pulmonary emboli status post EKOS. Continue patient on heparin drip, patient will be transitioned into Xarelto or Eliquis, patient was seen in consultation by pulmonary medicine as well as cardiology, patient will continue to be in the ICU until he is transitioned into oral anticoagulation. 2. hyperlipidemia. Continue patient on atorvastatin 10 mg orally once every day. 3. Enlarged prostate. Continue patient on tamsulosin 0.4 mg once every day as well as Dutasteride 0.5 mg orally once every day. 4. Vitamin D deficiency. Continue vitamin D 3 2000 units once every day. 5. Spondylosis of the lumbar spine. Start the patient back on his [place] 5/325 mg 1 tablet every 6 hours as needed as well as Dilaudid 0.5 mg IV push every 3 hours as needed. 6. Constipation. Continue Senokot 2 tablets at bedtime along with MiraLAX 17 g in 8 ounces of water once every day. 7. Admit to inpatient. Estimated length of stay 2 midnights. 8. Patient is full code. Past Medical History Past Medical History: Prostate Disorder History of Any Multi-Drug Resistant Organisms: None Reported Past Surgical History: Hernia Repair Past Psychological History: No Psychological Hx Reported Past Alcohol Use History: None Reported Past Drug Use History: None Reported Medications and Allergies Home Medications Medication Instructions Recorded Confirmed Type Dutasteride [Avodart] 0.5 mg PO HS 02/19/15 05/10/22 History Tamsulosin [Flomax] 0.4 mg PO HS 02/19/15 05/10/22 History Ascorbic Acid [Vitamin C] 500 mg PO DAILY 05/10/22 05/10/22 History Atorvastatin [Lipitor] 10 mg PO DAILY 05/10/22 05/10/22 History Cholecalciferol [Vitamin D3 (25 25 mcg PO DAILY 05/10/22 05/10/22 History Mcg = 1000 Iu)] Glucosamine Sulfate 1,000 mg PO DAILY 05/10/22 05/10/22 History HYDROcodone/APAP 5-325MG [[place] 0.5 tab PO QID 05/10/22 05/10/22 History 5-325] Sennosides [Senokot] 8.6 - 17.2 mg PO DAILY PRN 05/10/22 05/10/22 History Zinc Sulfate [Orazinc] 25 mg PO DAILY 05/10/22 05/10/22 History polyethylene glycoL 3350 [Miralax] 17 gm PO DAILY PRN 05/10/22 05/10/22 History Allergies Allergy/AdvReac Type Severity Reaction Status Date / Time No Known Allergies Allergy Verified 05/10/22 11:18 Physical Exam Vitals: Vital Signs Temp Pulse Resp BP Pulse Ox 05/10/22 10:00 72 17 108/79 95 05/10/22 09:30 75 16 108/72 05/10/22 09:20 72 16 108/72 05/10/22 09:15 74 16 108/79 93 L 05/10/22 09:12 77 14 108/72 05/10/22 08:01 98.1 F 83 20 120/73 95 Intake and Output 05/09/22 05/10/22 05/10/22 22:59 06:59 14:59 Other: Weight 77.111 kg Results CBC & Chem 7: 05/10/22 14:39 05/10/22 14:39 Labs: Abnormal Lab Results - Last 24 Hours (Table) 05/10/22 05/10/22 05/10/22 Range/Units 08:32 08:32 08:32 D-Dimer 13.61 H (<0.60) mg/L FEU Sodium 134 L (137-145) mmol/L Glucose 125 H (74-99) mg/dL Troponin I 0.250 H* (0.000-0.034) ng/mL Albumin 3.1 L (3.5-5.0) g/dL
[2022-05-10] MEDS: TAMSULOSIN 0.4 MG CAP.ER.24H PO SCH (21:23)
[2022-05-10] MEDS: FINASTERIDE 5 MG TAB PO SCH (21:25)
[2022-05-11] MEDS: HYDROmorphone 0.5 MG/0.5 ML SYRINGE IVP PRN ×4 (03:20→14:12)
[2022-05-11] MEDS: HEPARIN SOD,PORK IN 0.45% NACL 25,000 UNIT in 0.45% NACL 1 250ML.BAG IV SCH ×2 (04:59→09:30)
[2022-05-11 07:56] LABS: Basophils # (A) 0.1 k/uL (0-0.2); Basophils % (A) 1 %; Eosinophils # (A) 0.2 k/uL (0-0.7); Eosinophils % (A) 3 %; HCT 39.9 % (39.0-53.0); HGB 13.2 gm/dL (13.0-17.5); Lymphocytes # (A) 1.6 k/uL (1.0-4.8); Lymphocytes % (A) 26 %; MCH 31.8 pg (25.0-35.0); MCHC 33.1 g/dL (31.0-37.0); MCV 96.2 fL (80.0-100.0); Mean Platelet Volume 7.8; Monocytes # (A) 0.5 k/uL (0-1.0); Monocytes % (A) 8 %; Neutrophils # (A) 3.8 k/uL (1.3-7.7); Neutrophils % (A) 60 %; Platelet Count 284 k/uL (150-450); RBC 4.15 m/uL (4.30-5.90); RDW 13.3 % (11.5-15.5); WBC 6.3 k/uL (3.8-10.6)
[2022-05-11 08:30] LABS: Partial Thromboplastin Time 130.3 sec (22.0-30.0)
--- NOTE | 2022-05-11 08:58 | CA ---
Transthoracic Echo Report Name: Carlos Alvarado Age: 82 Gender: M : 1940 Exam Date: 05/10/2022 11:21 Exam Location: [facility] Ht (in): 71 Wt (lb): 170 Ordering Physician: Luiz Chauhan MD Attending/Referring Phys: Outboard Motorboat Operator Em Barraza RDCS Procedure CPT: Indications: PE Cardiac Hx: Technical Quality: Good Contrast 1: Total Dose (mL): Contrast 2: Total Dose (mL): MEASUREMENTS (Male / Female) Normal Values 2D ECHO LV Diastolic Diameter PLAX 3.3 cm 4.2 - 5.9 / 3.9 - 5.3 cm LV Systolic Diameter PLAX 2.4 cm IVS Diastolic Thickness 1.1 cm 0.6 - 1.0 / 0.6 - 0.9 cm LVPW Diastolic Thickness 1.0 cm 0.6 - 1.0 / 0.6 - 0.9 cm LV Relative Wall Thickness 0.6 RV Internal Dim ED PLAX 3.8 cm LA Systolic Diameter LX 3.1 cm 3.0 - 4.0 / 2.7 - 3.8 cm M-MODE Aortic Root Diameter MM 3.8 cm MV E Point Septal Separation 0.4 cm AV Cusp Separation MM 2.4 cm DOPPLER AV Peak Velocity 114.0 cm/s AV Peak Gradient 5.2 mmHg MV Area PHT 2.4 cm??? Mitral E Point Velocity 69.1 cm/s Mitral A Point Velocity 93.4 cm/s Mitral E to A Ratio 0.7 MV Deceleration Time 311.8 ms MV E' Velocity 9.1 cm/s Mitral E to MV E' Ratio 7.6 TR Peak Velocity 335.8 cm/s TR Peak Gradient 45.1 mmHg Right Ventricular Systolic Press 48.3 mmHg FINDINGS Left Ventricle Left ventricular ejection fraction is estimated at 55-60 %. Left ventricular cavity size normal. Left ventricular wall thickness normal. Right Ventricle Moderate right ventricular dilatation. Moderate pulmonary hypertension. Right Atrium Normal right atrial size. Left Atrium Normal left atrial size. No evidence for an atrial septal defect. Mitral Valve Mitral annular calcification. No mitral stenosis, regurgitation or prolapse. Aortic Valve Trileaflet aortic valve. Trace aortic regurgitation. Tricuspid Valve Mild tricuspid regurgitation. Pulmonic Valve Structurally normal pulmonic valve. Pericardium Normal pericardium. No pericardial effusion. Aorta Mild aortic dilatation at the level of the sinuses of valsalva 38 mm CONCLUSIONS Normal LV size and systolic function. No significant abnormality in the Doppler exam. Mild aortic dilatation noted no pericardial effusion Previewed by: Dr. Kisha Tejeda MD (Electronically Signed) Final Date: 11 May 2022 08:57
[2022-05-11] MEDS ORDERED: NON FORMULARY DRUG (Glucosamine Sulfate [Glucosamine Sulfate] 1,000 MG Tablet) PO SCH (09:00)
[2022-05-11 09:09] LABS: African American GFR (CKD) >90 (>60 ml/min/1.73 sqM); Anion Gap 5 mmol/L; Blood Urea Nitrogen 13 mg/dL (9-20); Calcium 7.9 mg/dL (8.4-10.2); Carbon Dioxide 25 mmol/L (22-30); Chloride 104 mmol/L (98-107); Glucose 98 mg/dL (74-99); Non-African American GFR(CKD) 82 (>60 ml/min/1.73 sqM); Potassium 4.4 mmol/L (3.5-5.1); Sodium 134 mmol/L (137-145)
[2022-05-11] MEDS: HYDROcodone/APAP 5-325MG 1 EACH TAB PO SCH ×3 (09:24→21:22)
[2022-05-11] MEDS: CHOLECALCIFEROL 25 MCG (1000 IU) TABLET PO SCH (09:30)
[2022-05-11] MEDS: ASCORBIC ACID 500 MG TAB PO SCH (09:30)
[2022-05-11] MEDS: ATORVASTATIN 10 MG TAB PO SCH (09:30)
[2022-05-11] MEDS: PANTOPRAZOLE 40 MG/10 ML VIAL IV SCH (09:30)
[2022-05-11] MEDS: ZINC SULFATE 25 MG PO SCH (09:42)
[2022-05-11] MEDS ORDERED: bisacodyL 10 MG SUPP RECTAL STA (09:43)
--- NOTE | 2022-05-11 10:52 | P.PN ---
Subjective 82-year-old gentleman is admitted to hospital large bilateral symptomatic pulmonary embolism. He was treated with high-dose heparin and underwent EKOS. Patient has finished the TPA infusion and is currently in IV heparin. His femoral sheaths have been removed. Patient is free of symptoms this morning at rest. Remains in sinus rhythm stable hemodynamically. Echocardiogram showed normal LV function with an enlarged right ventricle. I will switch him to eliquis or Xarelto tomorrow. On exam comfortable at rest vital signs are stable there is a jugular venous distention carotid upstroke is normal there is no bruit chest exam reveals good air entry bilaterally heart exam reveals first and second heart sounds no gallop no murmur no rub abdomen is soft exam extremities did not reveal any edema per for pulses are felt Labs show that the hemoglobin is 15.2 platelet count is 284 Pulse ox is around 98% on room air. If he is satting well we will stop the nasal O2 Assessment and plan: Acute bilateral pulmonary embolism on heparin status post E course Objective - Vital Signs Vital signs: Vital Signs Temp 98.2 F 05/11/22 07:30 Pulse 52 L 05/11/22 10:00 Resp 11 L 05/11/22 10:00 BP 115/58 05/11/22 10:00 Pulse Ox 98 05/11/22 10:00 FiO2 2 05/11/22 00:00 Intake & Output 05/10/22 05/11/22 05/11/22 18:59 06:59 18:59 Intake Total 357.72 2253.018 430 Output Total 100 570 150 Balance 257.72 1683.018 280 Weight 77.111 kg 83.6 kg Intake: IV 357.72 1577.0 190 0.9 @ 20 40 20 0.9 @ 20 ml/hr 40 60 Alteplase 10 mg In Sodium 10 50 Chloride 0.9% 90 ml @ 1 MG/HR 10 mls/hr IV .Q10H [facility] Rx#:[id number] Alteplase 10 mg In Sodium 10 50 Chloride 0.9% 90 ml @ 1 MG/HR 10 mls/hr IV .Q10H [facility] Rx#:[id number] Heparin Sod,Pork in 0.45% 2.5 33.5 NaCl 25,000 unit In 0.45 % NaCl 1 250ml.bag @ 2.5 mls/hr IV .Q24H [facility] Rx#: [id number] Heparin Sod,Pork in 0.45% 2.5 33.5 NaCl 25,000 unit In 0.45 % NaCl 1 250ml.bag @ 2.5 mls/hr IV .Q24H [facility] Rx#: [id number] Sodium Chloride 0.9% 1, 35 455 35 000 ml @ 35 mls/hr IV . Q24H [facility] Rx#:[id number] Sodium Chloride 0.9% 1, 35 455 35 000 ml @ 35 mls/hr IV . Q24H [facility] Rx#:[id number] Sodium Chloride 0.9% 1, 20 260 20 000 ml @ Per Protocol IV .Q0M [facility] Rx#:[id number] Sodium Chloride 0.9% 80 10 500ml @ 10 ml/hr IV Sodium Chloride 0.9% 80 10 500ml @10 ml/hr IV Intake, IV Titration 236.018 Amount Heparin Sod,Pork in 0.45% 236.018 NaCl 25,000 unit In 0.45 % NaCl 1 250ml.bag @ 18 UNITS/KG/HR 13.88 mls/hr IV .Q18H1M [facility] Rx#: [id number] Oral 440 240 Output: Urine 100 570 150 Other: Voiding Method Urinal Urinal Urinal - Labs CBC & Chem 7: 05/11/22 07:29 05/11/22 07:29 Labs: Abnormal Lab Results - Last 24 Hours (Table) 05/10/22 05/10/22 05/10/22 Range/Units 14:39 14:39 17:17 RBC (4.30-5.90) m/uL PT 12.3 H (9.0-12.0) sec INR 1.2 H (<1.2) APTT 75.4 H (22.0-30.0) sec ABG pO2 43 L* (83-108) mmHg ABG O2 Saturation 75.8 L (94-97) % Sodium 133 L (137-145) mmol/L Glucose 112 H (74-99) mg/dL Calcium 8.0 L (8.4-10.2) mg/dL Urine Ketones (Negative) Urine Blood (Negative) Urine RBC (0-5) /hpf Urine Mucus (None) /hpf 05/10/22 05/11/22 05/11/22 Range/Units 20:00 07:29 07:29 RBC 4.15 L (4.30-5.90) m/uL PT (9.0-12.0) sec INR (<1.2) APTT (22.0-30.0) sec ABG pO2 (83-108) mmHg ABG O2 Saturation (94-97) % Sodium 134 L (137-145) mmol/L Glucose (74-99) mg/dL Calcium 7.9 L (8.4-10.2) mg/dL Urine Ketones 1+ H (Negative) Urine Blood Large H (Negative) Urine RBC >182 H (0-5) /hpf Urine Mucus Rare H (None) /hpf 05/11/22 Range/Units 07:29 RBC (4.30-5.90) m/uL PT (9.0-12.0) sec INR (<1.2) APTT 130.3 H* (22.0-30.0) sec ABG pO2 (83-108) mmHg ABG O2 Saturation (94-97) % Sodium (137-145) mmol/L Glucose (74-99) mg/dL Calcium (8.4-10.2) mg/dL Urine Ketones (Negative) Urine Blood (Negative) Urine RBC (0-5) /hpf Urine Mucus (None) /hpf
[2022-05-11 10:53] LABS: INR 1.2 (<1.2); Prothrombin Time 12.8 sec (9.0-12.0)
--- NOTE | 2022-05-11 12:23 | P.PN ---
Subjective Progress Note Date: 05/11/22 Principal diagnosis: Acute pulmonary embolism This is an 82-year-old white male with history of multiple medical problems including dyslipidemia, enlarged prostate, and herniated disease involving the lumbar spine. Patient [facility], and he is hernandez pposed to have an epidural injection on the by Dr. Pascual. Patient is also scheduled to have back surgery on May 30. Early this morning, the patient had an episode of syncope as he was walking to the kitchen, patient felt lightheaded, and according to the he passed out for about 2 minutes. He was unresponsive and his eyes were closed. Patient was brought into the ER, workup included a CT angiogram of the chest, and it showed evidence of extensive bilateral pulmonary emboli with signs of right cardiac strain. Patient will be admitted to the ICU, he is yet to be seen by cardiology or vascular surgery for possible ekos procedure, and the meantime the patient is on heparin. During my evaluation, the patient had no chest pain, no shortness of breath, no palpitations, he felt fine his only complaint was chronic low back pain, being addressed by [facility] Patient was reevaluated today on 05/11/22, patient is doing well, relatively asymptomatic, he is on 2 L nasal cannula, he is back on heparin, patient underwent uneventful ekos thrombolysis yesterday by cardiology, and overall the patient is doing great. The plan is to transition him from heparin to eliquis a nd possibly discharge the patient home in the next 24 hours. Labs today are basically unremarkable. CBC is relatively normal. Objective - Vital Signs Vital signs: Vital Signs Temp 98.2 F 05/11/22 07:30 Pulse 52 L 05/11/22 10:00 Resp 11 L 05/11/22 10:00 BP 115/58 05/11/22 10:00 Pulse Ox 98 05/11/22 10:00 FiO2 2 05/11/22 00:00 Intake & Output 05/10/22 05/11/22 05/11/22 18:59 06:59 18:59 Intake Total 357.72 2253.018 430 Output Total 100 570 150 Balance 257.72 1683.018 280 Weight 77.111 kg 83.6 kg Intake: IV 357.72 1577.0 190 0.9 @ 20 40 20 0.9 @ 20 ml/hr 40 60 Alteplase 10 mg In Sodium 10 50 Chloride 0.9% 90 ml @ 1 MG/HR 10 mls/hr IV .Q10H [facility] Rx#:[id number] Alteplase 10 mg In Sodium 10 50 Chloride 0.9% 90 ml @ 1 MG/HR 10 mls/hr IV .Q10H [facility] Rx#:[id number] Heparin Sod,Pork in 0.45% 2.5 33.5 NaCl 25,000 unit In 0.45 % NaCl 1 250ml.bag @ 2.5 mls/hr IV .Q24H [facility] Rx#: [id number] Heparin Sod,Pork in 0.45% 2.5 33.5 NaCl 25,000 unit In 0.45 % NaCl 1 250ml.bag @ 2.5 mls/hr IV .Q24H [facility] Rx#: [id number] Sodium Chloride 0.9% 1, 35 455 35 000 ml @ 35 mls/hr IV . Q24H [facility] Rx#:[id number] Sodium Chloride 0.9% 1, 35 455 35 000 ml @ 35 mls/hr IV . Q24H [facility] Rx#:[id number] Sodium Chloride 0.9% 1, 20 260 20 000 ml @ Per Protocol IV .Q0M [facility] Rx#:[id number] Sodium Chloride 0.9% 80 10 500ml @ 10 ml/hr IV Sodium Chloride 0.9% 80 10 500ml @10 ml/hr IV Intake, IV Titration 236.018 Amount Heparin Sod,Pork in 0.45% 236.018 NaCl 25,000 unit In 0.45 % NaCl 1 250ml.bag @ 18 UNITS/KG/HR 13.88 mls/hr IV .Q18H1M [facility] Rx#: [id number] Oral 440 240 Output: Urine 100 570 150 Other: Voiding Method Urinal Urinal Urinal - Exam Physical Exam: Revealed 82-year-old white male in no distress, on 2 L nasal cannula Head: Atraumatic, normocephalic. HEENT:[Neck is supple.] [No neck masses.] [No thyromegaly.] [No JVD.] Chest: [Clear throughout, no crackles, no rhonchi, no wheezes.] Cardiac Exam: [Normal S1 and S2, no S3 gallop, no murmur.] Abdomen: [Soft, nontender, no megaly, no rebound, no guarding, normal bowel sounds.] Extremities: [No clubbing, no edema, no cyanosis.] Neurological Exam: [No focal neurologic deficit.] Alert and oriented 3. Psychiatric: Normal mood, affect and normal mental status examination. Skin: No rashes. - Labs CBC & Chem 7: 05/11/22 07:29 05/11/22 07:29 Labs: Abnormal Lab Results - Last 24 Hours (Table) 05/10/22 05/10/22 05/10/22 Range/Units 14:39 14:39 17:17 RBC (4.30-5.90) m/uL PT 12.3 H (9.0-12.0) sec INR 1.2 H (<1.2) APTT 75.4 H (22.0-30.0) sec ABG pO2 43 L* (83-108) mmHg ABG O2 Saturation 75.8 L (94-97) % Sodium 133 L (137-145) mmol/L Glucose 112 H (74-99) mg/dL Calcium 8.0 L (8.4-10.2) mg/dL Urine Ketones (Negative) Urine Blood (Negative) Urine RBC (0-5) /hpf Urine Mucus (None) /hpf 05/10/22 05/11/22 05/11/22 Range/Units 20:00 07:29 07:29 RBC 4.15 L (4.30-5.90) m/uL PT (9.0-12.0) sec INR (<1.2) APTT (22.0-30.0) sec ABG pO2 (83-108) mmHg ABG O2 Saturation (94-97) % Sodium 134 L (137-145) mmol/L Glucose (74-99) mg/dL Calcium 7.9 L (8.4-10.2) mg/dL Urine Ketones 1+ H (Negative) Urine Blood Large H (Negative) Urine RBC >182 H (0-5) /hpf Urine Mucus Rare H (None) /hpf 05/11/22 Range/Units 07:29 RBC (4.30-5.90) m/uL PT 12.8 H (9.0-12.0) sec INR 1.2 H (<1.2) APTT 130.3 H* (22.0-30.0) sec ABG pO2 (83-108) mmHg ABG O2 Saturation (94-97) % Sodium (137-145) mmol/L Glucose (74-99) mg/dL Calcium (8.4-10.2) mg/dL Urine Ketones (Negative) Urine Blood (Negative) Urine RBC (0-5) /hpf Urine Mucus (None) /hpf Assessment and Plan Assessment: Impression: Acute massive bilateral pulmonary emboli, status post ekos thrombolysis. Suspect some component of right ventricular strain History of benign prostatic hypertrophy Dyslipidemia Degenerative lumbar disc disease and chronic low back pain Syncope secondary to acute massive pulmonary emboli. Recommendation: Continue heparin Transition patient to eliquis, and he needs to be on anticoagulations therapy lifetime Transfer patient out of the ICU to a monitor bed on selective We'll continue to follow closely. Time with Patient: Less than 30
[2022-05-11] MEDS: HEPARIN SODIUM 1,000 UN/ML (10ML VL) IV PRN (16:10)
[2022-05-11] MEDS: SENNOSIDES-DOCUSATE SODIUM 1 EACH TAB PO SCH (21:22)
[2022-05-11] MEDS: TAMSULOSIN 0.4 MG CAP.ER.24H PO SCH (21:24)
[2022-05-11] MEDS: FINASTERIDE 5 MG TAB PO SCH (21:24)
[2022-05-12] MEDS: HYDROcodone/APAP 5-325MG 1 EACH TAB PO SCH ×2 (00:44→16:50)
[2022-05-12] MEDS: HYDROmorphone 0.5 MG/0.5 ML SYRINGE IVP PRN (05:05)
[2022-05-12 06:08] LABS: Basophils # (A) 0.1 k/uL (0-0.2); Basophils % (A) 1 %; Eosinophils # (A) 0.3 k/uL (0-0.7); Eosinophils % (A) 5 %; HCT 42.2 % (39.0-53.0); HGB 13.8 gm/dL (13.0-17.5); Lymphocytes # (A) 1.8 k/uL (1.0-4.8); Lymphocytes % (A) 28 %; MCH 31.6 pg (25.0-35.0); MCHC 32.7 g/dL (31.0-37.0); MCV 96.5 fL (80.0-100.0); Mean Platelet Volume 7.8; Monocytes # (A) 0.4 k/uL (0-1.0); Monocytes % (A) 7 %; Neutrophils # (A) 3.6 k/uL (1.3-7.7); Neutrophils % (A) 56 %; Platelet Count 354 k/uL (150-450); RBC 4.37 m/uL (4.30-5.90); RDW 12.9 % (11.5-15.5); WBC 6.4 k/uL (3.8-10.6)
[2022-05-12] MEDS: HEPARIN SODIUM 1,000 UN/ML (10ML VL) IV PRN (06:52)
--- NOTE | 2022-05-12 08:51 | P.PN ---
Subjective Progress Note Date: 05/11/22 HISTORY OF PRESENT ILLNESS: this is an 82-year-old male with a previous medical history signifi cant for hyperlipidemia, enlarged prostate, vitamin D deficiency, history of osteoarthritis, history of significant spondylosis of the lumbar spine has been under the care of orthopedic surgery with epidural injection and he was supposed to go for surgical intervention by Dr. Lopez he came to the office on the of this month because of increased fever and a chronic low back pain along with not able template is much, patient has been sedentary for the past 4 weeks due to his significant pain in the back and the patient has been seen as an outpatient clinic for fever he was placed on Keflex 500 mg orally 3 times every day which I spoke with the patient about taking it off when he was seen in the office had a twelve-lead EKG for evaluation for preoperative medical clearance his EKG showed sinus rhythm without evidence of any sinus tachycardia or any right ventricular strain pattern, patient oxygen saturation was about 93% on room air, blood pressure was. Stable, patient was not complaining of any chest pain or any shortness breath that time, patient did appear to have a minimal swe lling in both lower extremity is without any calf tenderness, patient went home and today he was walking to the kitchen developed to have a syncopal episode his was with him and she lowered down to the floor, patient required oxygen supplement when the EMS got there was taken to the emergency department at [facility] a blood test that showed a d-dimer elevation of 13 underwent CTA of the chest that was positive for massive bilateral pulmonary emboli his EKG showed evidence of right strain pattern he was hemodynamically stable, patient was taken to the electrical laboratory technician and underwent EKOS procedure and he was admitted to the intensive care unit, patient was seen in ICU he was doing fine and he denies any chest pain he is less short of breath, he has no pleurisy at this time, patient has been stable since the procedure, this is likely related to either bilateral lower extremity DVT or pelvic floor DVT that had traveled to the pulmonary arteries and cause significant and massive PE. 05/11: patient is laying down in bed in no apparent distress, he underwent EKOS with thrombolysis yesterday tolerated the procedure very well, currently on heparin drip, we'll keep him on heparin for another 24 hours, then the patient can be transitioned into Eliquis 10 mg orally twice every day for 7 days then 5 mg orally twice every day for life. REVIEW OF SYSTEMS: Constitutional: positive for low-grade fever, no chills, no night sweats. No weight change. No weakness, fatigue or lethargy. No daytime sleepiness. HEENT: No headache. No blurred vision or double vision, no loss of vision. No loss of Hearing, no ringing in the ears, no dizziness. No nasal drainage or congestion. No epistaxis. No sore throat. Lungs: positive for shortness of breath, no cough, no sputum production. No wheezing. Reports dyspnea with activity. Cardiovascular: No chest pain, minimal lower extremity edema. No palpitations. No paroxysmal nocturnal dyspnea. No orthopnea. No lightheadedness or dizziness. positive for syncopal episodes. Abdominal: Reports abdominal pain. No nausea, vomiting. No diarrhea. No constipation. No bloody or tarry stools reports loss of appetite. Genitourinary: No dysuria, increased frequency, urgency. No urinary retention. Musculoskeletal: No myalgias. No muscle weakness, positive for gait dysfunction, no frequent falls. positive for moderate to severe back pain. No neck pain. Integumentary: No wounds, no lesions. No rash or pruritus. No unusual b ruising. No change in hair or nails. Neurologic: No aphasia. No facial droop. No change in mentation. No head injury. No headache. No paralysis. No paresthesia. Psychiatric: No depression. No anxiety. No mood swings. Endocrine: No abnormal blood sugars. No weight change. PHYSICAL EXAMINATION: General: this is an 82-year-old male who is laying down in bed in no particular distress. HEENT: Head is atraumatic, normocephalic, pupils were equal round reactive to light and recommendation, extraocular muscle movement were intact, sclera nonicteric, conjunctivae were pale, mucous membranes of the mouth are somewhat dry. Neck: Supple, no JVP, normal carotid upstroke bilaterally, no lymphadenopathy. Chest: Decreased breath sounds at the bases, few rhonchi, no expiratory wheezes, no chest wall tenderness, no intercostal retractions. Heart: First heart sound is normal, second heart sound is normal, there is no gallop or murmur. Abdomen: Soft, nontender, nondistended, positive bowel sounds. Extremities: There is no edema no calf tenderness DP +2 bilaterally. Neurologic examination: Patient is awake alert and oriented X 3, cranial nerves II-12 appear grossly intact, muscle power were 5 out of 5 in upper extremities and 5 out of 5 in bilateral lower extremities, deep tendon reflexes normal bilaterally. ASSESSMENT AND PLAN: 1. bilateral massive pulmonary emboli status post EKOS. Continue patient on heparin drip, patient will be transitioned into Xarelto or Eliquis, patient was seen in consultation by pulmonary medicine as well as cardiology, patient will continue to be in the ICU until he is transitioned into oral anticoagulation. 2. hyperlipidemia. Continue patient on atorvastatin 10 mg orally once every day. 3. Enlarged prostate. Continue patient on tamsulosin 0.4 mg once every day as well as Dutasteride 0.5 mg orally once every day. 4. Vitamin D deficiency. Continue vitamin D 3 2000 units once every day. 5. Spondylosis of the lumbar spine. Start the patient back on his [place] 5/325 mg 1 tablet every 6 hours as needed as well as Dilaudid 0.5 mg IV push every 3 hours as needed. 6. Constipation. Continue Senokot 2 tablets at bedtime along with MiraLAX 17 g in 8 ounces of water once every day. Objective - Vital Signs Vital signs: Vital Signs Temp 98.4 F 05/11/22 12:00 Pulse 58 L 05/11/22 14:00 Resp 14 05/11/22 14:00 BP 120/67 05/11/22 14:00 Pulse Ox 98 05/11/22 14:00 FiO2 2 05/11/22 00:00 Intake & Output 05/10/22 05/11/22 05/11/22 18:59 06:59 18:59 Intake Total 357.72 2253.018 510 Output Total 100 570 225 Balance 257.72 1683.018 285 Weight 77.111 kg 83.6 kg Intake: IV 357.72 1577.0 270 0.9 @ 20 40 20 0.9 @ 20 ml/hr 40 140 Alteplase 10 mg In Sodium 10 50 Chloride 0.9% 90 ml @ 1 MG/HR 10 mls/hr IV .Q10H [facility] Rx#:[id number] Alteplase 10 mg In Sodium 10 50 Chloride 0.9% 90 ml @ 1 MG/HR 10 mls/hr IV .Q10H [facility] Rx#:[id number] Heparin Sod,Pork in 0.45% 2.5 33.5 NaCl 25,000 unit In 0.45 % NaCl 1 250ml.bag @ 2.5 mls/hr IV .Q24H [facility] Rx#: [id number] Heparin Sod,Pork in 0.45% 2.5 33.5 NaCl 25,000 unit In 0.45 % NaCl 1 250ml.bag @ 2.5 mls/hr IV .Q24H [facility] Rx#: [id number] Sodium Chloride 0.9% 1, 35 455 35 000 ml @ 35 mls/hr IV . Q24H [facility] Rx#:[id number] Sodium Chloride 0.9% 1, 35 455 35 000 ml @ 35 mls/hr IV . Q24H [facility] Rx#:[id number] Sodium Chloride 0.9% 1, 20 260 20 000 ml @ Per Protocol IV .Q0M [facility] Rx#:[id number] Sodium Chloride 0.9% 80 10 500ml @ 10 ml/hr IV Sodium Chloride 0.9% 80 10 500ml @10 ml/hr IV Intake, IV Titration 236.018 Amount Heparin Sod,Pork in 0.45% 236.018 NaCl 25,000 unit In 0.45 % NaCl 1 250ml.bag @ 18 UNITS/KG/HR 13.88 mls/hr IV .Q18H1M [facility] Rx#: [id number] Oral 440 240 Output: Urine 100 570 225 Other: Voiding Method Urinal Urinal Urinal # Voids 1 - Labs CBC & Chem 7: 05/11/22 07:29 05/11/22 07:29 Labs: Abnormal Lab Results - Last 24 Hours (Table) 05/10/22 05/10/22 05/10/22 Range/Units 14:39 14:39 17:17 RBC (4.30-5.90) m/uL PT 12.3 H (9.0-12.0) sec INR 1.2 H (<1.2) APTT 75.4 H (22.0-30.0) sec ABG pO2 43 L* (83-108) mmHg ABG O2 Saturation 75.8 L (94-97) % Sodium 133 L (137-145) mmol/L Glucose 112 H (74-99) mg/dL Calcium 8.0 L (8.4-10.2) mg/dL Urine Ketones (Negative) Urine Blood (Negative) Urine RBC (0-5) /hpf Urine Mucus (None) /hpf 05/10/22 05/11/22 05/11/22 Range/Units 20:00 07:29 07:29 RBC 4.15 L (4.30-5.90) m/uL PT (9.0-12.0) sec INR (<1.2) APTT (22.0-30.0) sec ABG pO2 (83-108) mmHg ABG O2 Saturation (94-97) % Sodium 134 L (137-145) mmol/L Glucose (74-99) mg/dL Calcium 7.9 L (8.4-10.2) mg/dL Urine Ketones 1+ H (Negative) Urine Blood Large H (Negative) Urine RBC >182 H (0-5) /hpf Urine Mucus Rare H (None) /hpf 05/11/22 Range/Units 07:29 RBC (4.30-5.90) m/uL PT 12.8 H (9.0-12.0) sec INR 1.2 H (<1.2) APTT 130.3 H* (22.0-30.0) sec ABG pO2 (83-108) mmHg ABG O2 Saturation (94-97) % Sodium (137-145) mmol/L Glucose (74-99) mg/dL Calcium (8.4-10.2) mg/dL Urine Ketones (Negative) Urine Blood (Negative) Urine RBC (0-5) /hpf Urine Mucus (None) /hpf
[2022-05-12] MEDS: SENNOSIDES-DOCUSATE SODIUM 1 EACH TAB PO SCH (10:00)
[2022-05-12] MEDS: ATORVASTATIN 10 MG TAB PO SCH (10:00)
[2022-05-12] MEDS: PANTOPRAZOLE 40 MG/10 ML VIAL IV SCH (10:01)
[2022-05-12] MEDS: HYDROcodone/APAP 5-325MG 1 EACH TAB PO PRN ×2 (10:01→17:04)
[2022-05-12] MEDS: CHOLECALCIFEROL 25 MCG (1000 IU) TABLET PO SCH (10:01)
[2022-05-12] MEDS: ASCORBIC ACID 500 MG TAB PO SCH (10:01)
[2022-05-12] MEDS: ZINC SULFATE 25 MG PO SCH (10:02)
[2022-05-12] MEDS: HEPARIN SOD,PORK IN 0.45% NACL 25,000 UNIT in 0.45% NACL 1 250ML.BAG IV SCH (10:06)
--- NOTE | 2022-05-12 10:19 | P.PN ---
Subjective Progress Note Date: 05/12/22 HISTORY OF PRESENT ILLNESS: this is an 82-year-old male with a previous medical history signifi cant for hyperlipidemia, enlarged prostate, vitamin D deficiency, history of osteoarthritis, history of significant spondylosis of the lumbar spine has been under the care of orthopedic surgery with epidural injection and he was supposed to go for surgical intervention by Dr. Lopez he came to the office on the of this month because of increased fever and a chronic low back pain along with not able template is much, patient has been sedentary for the past 4 weeks due to his significant pain in the back and the patient has been seen as an outpatient clinic for fever he was placed on Keflex 500 mg orally 3 times every day which I spoke with the patient about taking it off when he was seen in the office had a twelve-lead EKG for evaluation for preoperative medical clearance his EKG showed sinus rhythm without evidence of any sinus tachycardia or any right ventricular strain pattern, patient oxygen saturation was about 93% on room air, blood pressure was. Stable, patient was not complaining of any chest pain or any shortness breath that time, patient did appear to have a minimal swe lling in both lower extremity is without any calf tenderness, patient went home and today he was walking to the kitchen developed to have a syncopal episode his was with him and she lowered down to the floor, patient required oxygen supplement when the EMS got there was taken to the emergency department at [facility] a blood test that showed a d-dimer elevation of 13 underwent CTA of the chest that was positive for massive bilateral pulmonary emboli his EKG showed evidence of right strain pattern he was hemodynamically stable, patient was taken to the laborer driver and underwent EKOS procedure and he was admitted to the intensive care unit, patient was seen in ICU he was doing fine and he denies any chest pain he is less short of breath, he has no pleurisy at this time, patient has been stable since the procedure, this is likely related to either bilateral lower extremity DVT or pelvic floor DVT that had traveled to the pulmonary arteries and cause significant and massive PE. 05/11: patient is laying down in bed in no apparent distress, he underwent EKOS with thrombolysis yesterday tolerated the procedure very well, currently on heparin drip, we'll keep him on heparin for another 24 hours, then the patient can be transitioned into Eliquis 10 mg orally twice every day for 7 days then 5 mg orally twice every day for life. 05/12: Patient sitting on the paternal distress, he denies any chest pain or any shortness breath, he has no pleurisy, he has no hemoptysis, has no abdominal pain, he has no swelling in both lower extremities, is stepped down however continues to be in ICU because of this no bed availability, we will continue to monitor the patient very closely, hopefully the patient will be transitioned to Eliquis in the next 1 or 2 days. REVIEW OF SYSTEMS: Constitutional: positive for low-grade fever, no chills, no night sweats. No weight change. No weakness, fatigue or lethargy. No daytime sleepiness. HEENT: No headache. No blurred vision or double vision, no loss of vision. No loss of Hearing, no ringing in the ears, no dizziness. No nasal drainage or congestion. No epistaxis. No sore throat. Lungs: positive for shortness of breath, no cough, no sputum production. No wheezing. Reports dyspnea with activity. Cardiovascular: No chest pain, minimal lower extremity edema. No palpitations. No paroxysmal nocturnal dyspnea. No orthopnea. No lightheadedness or dizziness. positive for syncopal episodes. Abdominal: Reports abdominal pain. No nausea, vomiting. No diarrhea. No constipation. No bloody or tarry stools reports loss of appetite. Genitourinary: No dysuria, increased frequency, urgency. No urinary retention. Musculoskeletal: No myalgias. No muscle weakness, positive for gait dysfunction, no frequent falls. positive for moderate to severe back pain. No neck pain. Integumentary: No wounds, no lesions. No rash or pruritus. No unusual bruising. No change in hair or nails. Neurologic: No aphasia. No facial droop. No change in mentation. No head injury. No headache. No paralysis. No paresthesia. Psychiatric: No depression. No anxiety. No mood swings. Endocrine: No abnormal blood sugars. No weight change. PHYSICAL EXAMINATION: General: this is an 82-year-old male who is laying down in bed in no particular distress. HEENT: Head is atraumatic, normocephalic, pupils were equal round reactive to light and recommendation, extraocular muscle movement were intact, sclera nonicteric, conjunctivae were pale, mucous membranes of the mouth are somewhat dry. Neck: Supple, no JVP, normal carotid upstroke bilaterally, no lymphadenopathy. Chest: Decreased breath sounds at the bases, few rhonchi, no expiratory wheezes, no chest wall tenderness, no intercostal retractions. Heart: First heart sound is normal, second heart sound is normal, there is no gallop or murmur. Abdomen: Soft, nontender, nondistended, positive bowel sounds. Extremities: There is no edema no calf tenderness DP +2 bilaterally. Neurologic examination: Patient is awake alert and oriented X 3, cranial nerves II-12 appear grossly intact, muscle power were 5 out of 5 in upper extremities and 5 out of 5 in bilateral lower extremities, deep tendon reflexes normal bilaterally. ASSESSMENT AND PLAN: 1. bilateral massive pulmonary emboli status post EKOS. Continue patient on heparin drip, patient will be transitioned into Xarelto or Eliquis, patient was seen in consultation by pulmonary medicine as well as cardiology, patient will continue to be in the ICU until he is transitioned into oral anticoagulation. 2. hyperlipidemia. Continue patient on atorvastatin 10 mg orally once every day. 3. Enlarged prostate. Continue patient on tamsulosin 0.4 mg once every day as well as Dutasteride 0.5 mg orally once every day. 4. Vitamin D deficiency. Continue vitamin D 3 2000 units once every day. 5. Spondylosis of the lumbar spine. Start the patient back on his Allen 5/325 mg 1 tablet every 6 hours as needed as well as Dilaudid 0.5 mg IV push every 3 hours as needed. 6. Constipation. Continue Senokot 2 tablets at bedtime along with MiraLAX 17 g in 8 ounces of water once every day. Objective - Vital Signs Vital signs: Vital Signs Temp 98.4 F 05/12/22 04:00 Pulse 89 05/12/22 04:00 Resp 17 05/12/22 04:00 BP 124/64 05/12/22 04:00 Pulse Ox 97 05/12/22 04:00 FiO2 2 05/11/22 00:00 Intake & Output 05/11/22 05/12/22 05/12/22 18:59 06:59 18:59 Intake Total 556.62 867.46 Output Total 225 725 Balance 331.62 142.46 Weight 80 kg Intake: IV 270 240 0.9 @ 20 20 0.9 @ 20 ml/hr 140 240 Sodium Chloride 0.9% 1, 35 000 ml @ 35 mls/hr IV . Q24H [facility] Rx#:[id number] Sodium Chloride 0.9% 1, 35 000 ml @ 35 mls/hr IV . Q24H [facility] Rx#:[id number] Sodium Chloride 0.9% 1, 20 000 ml @ Per Protocol IV .Q0M [facility] Rx#:[id number] Sodium Chloride 0.9% 10 500ml @ 10 ml/hr IV Sodium Chloride 0.9% 10 500ml @10 ml/hr IV Intake, IV Titration 46.62 147.46 Amount Heparin Sod,Pork in 0.45% 46.62 147.46 NaCl 25,000 unit In 0.45 % NaCl 1 250ml.bag @ 9.07 UNITS/KG/HR 6.993 mls/hr IV .Q24H [facility] Rx#: [id number] Oral 240 480 Output: Urine 225 725 Other: Voiding Method Urinal Urinal # Voids 1 1 - Labs CBC & Chem 7: 05/12/22 05:40 05/11/22 07:29 Labs: Abnormal Lab Results - Last 24 Hours (Table) 05/11/22 05/11/22 05/11/22 Range/Units 07:29 07:29 22:07 PT 12.8 H (9.0-12.0) sec INR 1.2 H (<1.2) APTT 130.3 H* 45.7 H (22.0-30.0) sec Sodium 134 L (137-145) mmol/L Calcium 7.9 L (8.4-10.2) mg/dL 05/12/22 Range/Units 05:40 PT (9.0-12.0) sec INR (<1.2) APTT 37.8 H (22.0-30.0) sec Sodium (137-145) mmol/L Calcium (8.4-10.2) mg/dL
--- NOTE | 2022-05-12 11:11 | US ---
EXAMINATION TYPE: US venous doppler duplex LE BI DATE OF EXAM: 05/12/2022 10:45 AM COMPARISON: NONE CLINICAL HISTORY: lisseth pe. Lisseth PE. No hx of DVT. Patient is on heparin. SIDE PERFORMED: Bilateral TECHNIQUE: The lower extremity deep venous system is examined utilizing real time linear array sonog mirela with graded compression, doppler sonography and color-flow sonography. VESSELS IMAGED: Common Femoral Vein Deep Femoral Vein Greater Saphenous Vein * Femoral Vein Popliteal Vein Small Saphenous Vein * Proximal Calf Veins (* superficial vessels) Right Leg: Negative for DVT Left Leg: Positive for DVT. Internal echoes seen in popliteal vein with little to no color flow. Ves clarita does not appear to compress. Some associated edema channels are present within the soft tissues o f the left leg. IMPRESSION: Deep venous thrombosis left popliteal vein. Report relayed to the intensive care unit nu rse at the time of interpretation. A Red level critical message alert has been initiated for Jovana Silva MD via the [facility] on 05/12/2022 11:05 AM. This message alert has been sent to Jovana Silva MD via the preferences provided by the clinician for the receipt of Radiology Critical Findings. Message ID [id number].
[2022-05-12] MEDS: APIXABAN 5 MG TAB PO SCH ×2 (11:26→21:00)
--- NOTE | 2022-05-12 11:54 | P.PN ---
Subjective Progress Note Date: 05/12/22 Principal diagnosis: Acute pulmonary embolism This is an 82-year-old white male with history of multiple medical problems including dyslipidemia, enlarged prostate, and herniated disease involving the lumbar spine. Patient [facility], and he is hernandez pposed to have an epidural injection on the by Dr. Pascual. Patient is also scheduled to have back surgery on May 30. Early this morning, the patient had an episode of syncope as he was walking to the kitchen, patient felt lightheaded, and according to the he passed out for about 2 minutes. He was unresponsive and his eyes were closed. Patient was brought into the ER, workup included a CT angiogram of the chest, and it showed evidence of extensive bilateral pulmonary emboli with signs of right cardiac strain. Patient will be admitted to the ICU, he is yet to be seen by cardiology or vascular surgery for possible ekos procedure, and the meantime the patient is on heparin. During my evaluation, the patient had no chest pain, no shortness of breath, no palpitations, he felt fine his only complaint was chronic low back pain, being addressed by [facility] Patient was reevaluated today on 05/11/22, patient is doing well, relatively asymptomatic, he is on 2 L nasal cannula, he is back on heparin, patient underwent uneventful ekos thrombolysis yesterday by cardiology, and overall the patient is doing great. The plan is to transition him from heparin to eliquis a nd possibly discharge the patient home in the next 24 hours. Labs today are basically unremarkable. CBC is relatively normal. Reevaluated today on 05/12/22, patient remains in the ICU, he is presently on overflow. Patient is on heparin which I have transition to eliquis today. Patient is having a venous Doppler, he was found to have positive DVT in the left popliteal vein. This is not surprising and that's mostly likely the source of his pulmonary embolism. The treatment will remain the same. Patient denies any cough no wheezing no shortness of breath. He seems to have mostly pain in t he low back, and some symptoms of radiculopathy. CBC is relatively normal PTT 45.7. Basic metabolic profile and renal profile were normal yesterday. Objective - Vital Signs Vital signs: Vital Signs Temp 97.8 F 05/12/22 08:00 Pulse 61 05/12/22 08:00 Resp 16 06/18/22 08:00 BP 112/65 05/12/22 08:00 Pulse Ox 95 05/12/22 08:00 FiO2 2 05/11/22 00:00 Intake & Output 05/11/22 05/12/22 05/12/22 18:59 06:59 18:59 Intake Total 556.62 867.46 54.029 Output Total 225 725 300 Balance 331.62 142.46 -245.971 Weight 80 kg Intake: IV 270 240 0.9 @ 20 20 0.9 @ 20 ml/hr 140 240 Sodium Chloride 0.9% 1, 35 000 ml @ 35 mls/hr IV . Q24H [facility] Rx#:[id number] Sodium Chloride 0.9% 1, 35 000 ml @ 35 mls/hr IV . Q24H [facility] Rx#:[id number] Sodium Chloride 0.9% 1, 20 000 ml @ Per Protocol IV .Q0M [facility] Rx#:[id number] Sodium Chloride 0.9% 10 500ml @ 10 ml/hr IV Sodium Chloride 0.9% 10 500ml @10 ml/hr IV Intake, IV Titration 46.62 147.46 54.029 Amount Heparin Sod,Pork in 0.45% 46.62 147.46 54.029 NaCl 25,000 unit In 0.45 % NaCl 1 250ml.bag @ 9.07 UNITS/KG/HR 6.993 mls/hr IV .Q24H [facility] Rx#: [id number] Oral 240 480 Output: Urine 225 725 300 Other: Voiding Method Urinal Urinal Urinal # Voids 1 1 - Exam Physical Exam: Revealed 82-year-old white male in no distress, on 2 L nasal cannula, O2 saturations 97%. Head: Atraumatic, normocephalic. HEENT:[Neck is supple.] [No neck masses.] [No thyromegaly.] [No JVD.] Chest: [Clear throughout, no crackles, no rhonchi, no wheezes.] Cardiac Exam: [Normal S1 and S2, no S3 gallop, no murmur.] Abdomen: [Soft, nontender, no megaly, no rebound, no guarding, normal bowel sounds.] Extremities: [No clubbing, no edema, no cyanosis.] Neurological Exam: [No focal neurologic deficit.] Alert and oriented 3. Psychiatric: Normal mood, affect and normal mental status examination. Skin: No rashes. - Labs CBC & Chem 7: 05/12/22 05:40 05/11/22 07:29 Labs: Abnormal Lab Results - Last 24 Hours (Table) 05/11/22 05/12/22 Range/Units 22:07 05:40 APTT 45.7 H 37.8 H (22.0-30.0) sec Assessment and Plan Assessment: Impression: Acute massive bilateral pulmonary emboli, status post ekos thrombolysis. right ventricular strain History of benign prostatic hypertrophy Dyslipidemia Degenerative lumbar disc disease and chronic low back pain Syncope secondary to acute massive pulmonary emboli. Acute left popliteal vein thromboses/DVT. Recommendation: Start patient on eliquis and discontinue heparin Patient is presently overflow in the ICU, Consider discharge planning if cleared by cardiology on the case. Time with Patient: Less than 30
--- NOTE | 2022-05-12 14:37 | PN ---
PROGRESS NOTE FOLLOW-UP NOTE: This 82-year-old gentleman was admitted to hospital with bilateral pulmonary embolism and had been found to have DVT. He has been switched to Eliquis 10 mg b.i.d. and we are checking to see if he has coverage. He is free of symptoms, oxygenating well. He is at 97% saturation in room air. On exam, vital signs are stable. Chest exam reveals good air entry bilaterally. Heart exam reveals first and second heart sounds. No gallop. Examination of extremities did not reveal any edema. Labs today show a hemoglobin of 13.8, platelet count is 354. ASSESSMENT: 1. Acute bilateral pulmonary embolism. 2. History of deep vein thrombosis. PLAN: Patient will continue the Eliquis that he is on. Hopefully home tomorrow. MMODL / IJN: [id number] /
[2022-05-12] MEDS: TAMSULOSIN 0.4 MG CAP.ER.24H PO SCH (21:00)
[2022-05-12] MEDS: FINASTERIDE 5 MG TAB PO SCH (21:00)
[2022-05-13] MEDS: HYDROcodone/APAP 5-325MG 1 EACH TAB PO PRN ×2 (03:03→08:54)
[2022-05-13 05:47] LABS: Basophils % (A) 1 %; Eosinophils # (A) 0.3 k/uL (0-0.7); Eosinophils % (A) 4 %; HCT 40.9 % (39.0-53.0); HGB 13.5 gm/dL (13.0-17.5); Lymphocytes # (A) 1.7 k/uL (1.0-4.8); Lymphocytes % (A) 26 %; MCH 31.7 pg (25.0-35.0); MCHC 33.1 g/dL (31.0-37.0); MCV 95.8 fL (80.0-100.0); Mean Platelet Volume 7.6; Monocytes # (A) 0.3 k/uL (0-1.0); Monocytes % (A) 5 %; Neutrophils # (A) 3.9 k/uL (1.3-7.7); Neutrophils % (A) 61 %; Platelet Count 417 k/uL (150-450); RBC 4.27 m/uL (4.30-5.90); RDW 13.2 % (11.5-15.5); WBC 6.4 k/uL (3.8-10.6)
[2022-05-13 06:01] LABS: ALT 35 U/L (4-49); AST 40 U/L (17-59); African American GFR (CKD) >90 (>60 ml/min/1.73 sqM); Albumin 2.8 g/dL (3.5-5.0); Alkaline Phosphatase 66 U/L (38-126); Anion Gap 5 mmol/L; Blood Urea Nitrogen 10 mg/dL (9-20); Calcium 8.3 mg/dL (8.4-10.2); Carbon Dioxide 26 mmol/L (22-30); Chloride 103 mmol/L (98-107); Glucose 116 mg/dL (74-99); Non-African American GFR(CKD) 82 (>60 ml/min/1.73 sqM); Potassium 4.5 mmol/L (3.5-5.1); Sodium 134 mmol/L (137-145); Total Bilirubin 0.4 mg/dL (0.2-1.3); Total Protein 5.9 g/dL (6.3-8.2)
[2022-05-13] MEDS ORDERED: PANTOPRAZOLE 40 MG TABLET PO SCH (07:30)
[2022-05-13] MEDS: APIXABAN 5 MG TAB PO SCH (07:47)
[2022-05-13] MEDS: ASCORBIC ACID 500 MG TAB PO SCH (07:48)
[2022-05-13] MEDS: SENNOSIDES-DOCUSATE SODIUM 1 EACH TAB PO SCH (07:48)
[2022-05-13] MEDS: CHOLECALCIFEROL 25 MCG (1000 IU) TABLET PO SCH (07:48)
[2022-05-13] MEDS: ATORVASTATIN 10 MG TAB PO SCH (07:48)
[2022-05-13] MEDS: ZINC SULFATE 25 MG PO SCH (07:50)
[2022-05-13 07:55] VITALS: BP 152/93; PULSE 60; RESP 18; TEMP 98.1
[2022-05-13] MEDS ORDERED: polyethylene glycoL 3350 17 GM POWD.PACK PO SCH (09:00)
--- NOTE | 2022-05-13 10:23 | P.PN ---
Subjective Progress Note Date: 05/13/22 Principal diagnosis: Acute pulmonary embolism, DVT left lower extremity This is an 82-year-old white male with history of multiple medical problems including dyslipidemia, enlarged prostate, and herniated disease involving the lumbar spine. Patient is [facility], and he is supposed to have an epidural injection on the by Dr. Pascual. Patient is also scheduled to have back surgery on May 30. Early this morning, the patient had an episode of syncope as he was walking to the kitchen, patient felt lightheaded, and according to the he passed out for about 2 minutes. He was unresponsive and his eyes were closed. Patient was brought into the ER, workup included a CT angiogram of the chest, and it showed evidence of extensive bilateral pulmonary emboli with signs of right cardiac strain. Patient will be admitted to the ICU, he is yet to be seen by cardiology or vascular surgery for possible ekos procedure, and the meantime the patient is on heparin. During my evaluation, the patient had no chest pain, no shortness of breath, no palpitations, he felt fine his only complaint was chronic low back pain, being addressed by [facility] Patient was reevaluated today on 05/11/22, patient is doing well, relatively asymptomatic, he is on 2 L nasal cannula, he is back on heparin, patient underwent uneventful ekos thrombolysis yesterday by cardiology, and overall the patient is doing great. The plan is to transition him from heparin to eliquis and possibly discharge the patient home in the next 24 hours. Labs today are basically unremarkable. CBC is relatively normal. Reevaluated today on 05/12/22, patient remains in the ICU, he is presently on overflow. Patient is on heparin which I have transition to eliquis today. Patient is having a venous Doppler, he was found to have positive DVT in the left popliteal vein. This is not surprising and that's mostly likely the source of his pulmonary embolism. The treatment will remain the same. Patient denies any cough no wheezing no shortness of breath. He seems to have mostly pain in the low back, and some symptoms of radiculopathy. CBC is relatively normal PTT 45.7. Basic metabolic profile and renal profile were normal yesterday. The patient is seen today in follow-up on the selective care unit. He is currently sitting up in a chair at the bedside. Awake and alert in no acute distress. Denies any shortness of breath, chest pain, hemoptysis. White count 6.4. Hemoglobin 13.5. Sodium 134. Potassium 4.5. BUN 10. Creatinine 0.85. He was initiated on Eliquis yesterday. Objective - Vital Signs Vital signs: Vital Signs Temp 98.1 F 05/13/22 07:54 Pulse 60 05/13/22 07:54 Resp 18 05/13/22 07:54 BP 152/93 05/13/22 07:54 Pulse Ox 92 L 05/13/22 07:54 FiO2 2 05/11/22 00:00 Intake & Output 05/12/22 05/13/22 05/13/22 18:59 06:59 18:59 Intake Total 654.029 485 250 Output Total 1100 300 Balance -445.971 185 250 Intake: IV 200 10 0.9 @ 20 ml/hr 200 Invasive Line 1 10 Intake, IV Titration 54.029 Amount Heparin Sod,Pork in 0.45% 54.029 NaCl 25,000 unit In 0.45 % NaCl 1 250ml.bag @ 9.07 UNITS/KG/HR 6.993 mls/hr IV .Q24H [facility] Rx#: [id number] Oral 400 485 240 Output: Urine 1100 300 Other: Voiding Method Urinal Urinal Urinal # Bowel Movements 1 - Exam GENERAL EXAM: Alert, active, pleasant 82-year-old gentleman, on room air, comfortable in no apparent distress. HEAD: Normocephalic. EYES: Normal reaction of pupils, equal size. NOSE: Clear with pink turbinates. THROAT: No erythema or exudates. NECK: No masses, no JVD. CHEST: No chest wall deformity. LUNGS: Equal air entry with no crackles, wheeze, rhonchi or dullness. CVS: S1 and S2 normal with no audible murmur, regular rhythm. ABDOMEN: No hepatosplenomegaly, normal bowel sounds, no guarding or rigidity. SPINE: No scoliosis or deformity SKIN: No rashes CENTRAL NERVOUS SYSTEM: No focal deficits, tone is normal in all 4 extremities. EXTREMITIES: There is no peripheral edema. No clubbing, no cyanosis. Peripheral pulses are intact. - Labs CBC & Chem 7: 05/13/22 05:07 05/13/22 05:07 Labs: Abnormal Lab Results - Last 24 Hours (Table) 05/13/22 05/13/22 Range/Units 05:07 05:07 RBC 4.27 L (4.30-5.90) m/uL Sodium 134 L (137-145) mmol/L Glucose 116 H (74-99) mg/dL Calcium 8.3 L (8.4-10.2) mg/dL Total Protein 5.9 L (6.3-8.2) g/dL Albumin 2.8 L (3.5-5.0) g/dL Assessment and Plan Assessment: 1 Acute massive bilateral pulmonary emboli, status post EKOS thrombolysis. Initiated on Eliquis 2 Right ventricular strain 3 History of benign prostatic hypertrophy 4 Dyslipidemia 5 Degenerative lumbar disc disease and chronic low back pain 6 Syncope secondary to acute massive pulmonary emboli. 7 Acute left popliteal vein thromboses/DVT. Plan: The patient was seen and evaluated Stable and on room air Anticoagulated with Eliquis Cleared for discharge from the pulmonary standpoint Follow-up in the office in 1-2 weeks' I have personally seen and examined the patient, performed the documentation and the assessment and plan as written. Number of minutes spent on the visit: 10.
--- NOTE | 2022-05-13 10:46 | P.DS ---
Providers Date of admission: 05/10/22 10:20 Expected date of discharge: 05/13/22 Attending physician: Jovana Silva Consults: 05/10/22 10:20 Consult Physician Routine Consulting Provider: Chris Almanza Consult Reason/Comments: Bilateral pulmonary embolism Do you want consulting provider notified?: Already Contacted Consult Physician Stat Consulting Provider: Rober Jaramillo Consult Reason/Comments: Elevated troponin, bilateral PE Do you want consulting provider notified?: Yes, Notify in am Primary care physician: Jovana Silva Hospital Course: HISTORY OF PRESENT ILLNESS: this is an 82-year-old male with a previous medical history significant for hyperlipidemia, enlarged prostate, vitamin D deficiency, history of osteoarthritis, history of significant spondylosis of the lumbar spine has been under the care of orthopedic surgery with epidural injection and he was supposed to go for surgical intervention by Dr. Lopez he came to the office on the of this month because of increased fever and a chronic low back pain along with not able template is much, patient has been sedentary for the past 4 weeks due to his significant pain in the back and the patient has been seen as an outpatient clinic for fever he was placed on Keflex 500 mg orally 3 times every day which I spoke with the patient about taking it off when he was seen in the office had a twelve-lead EKG for evaluation for preoperative medical clearance his EKG showed sinus rhythm without evidence of any sinus tachycardia or any right ventricular strain pattern, patient oxygen saturation was about 93% on room air, blood pressure was. Stable, patient was not complaining of any chest pain or any shortness breath that time, patient did appear to have a minimal swelling in both lower extremity is without any calf tenderness, patient went home and today he was walking to the kitchen developed to have a syncopal episode his was with him and she lowered down to the floor, patient required oxygen supplement when the EMS got there was taken to the emergency department at [facility] a blood test that showed a d-dimer elevation of 13 underwent CTA of the chest that was positive for massive bilateral pulmonary emboli his EKG showed evidence of right strain pattern he was hemodynamically stable, patient was taken to the nursery laborer and underwent EKOS procedure and he was admitted to the intensive care unit, patient was seen in ICU he was doing fine and he denies any chest pain he is less short of breath, he has no pleurisy at this time, patient has been stable since the procedure, this is likely related to either bilateral lower extremity DVT or pelvic floor DVT that had traveled to the pulmonary arteries and cause significant and massive PE. 05/11: patient is laying down in bed in no apparent distress, he underwent EKOS with thrombolysis yesterday tolerated the procedure very well, currently on heparin drip, we'll keep him on heparin for another 24 hours, then the patient can be transitioned into Eliquis 10 mg orally twice every day for 7 days then 5 mg orally twice every day for life. 05/12: Patient sitting on the paternal distress, he denies any chest pain or any shortness breath, he has no pleurisy, he has no hemoptysis, has no abdominal pain, he has no swelling in both lower extremities, is stepped down however continues to be in ICU because of this no bed availability, we will continue to monitor the patient very closely, hopefully the patient will be transitioned to Eliquis in the next 1 or 2 days. Discharge diagnoses: 1. bilateral massive pulmonary emboli status post EKOS. 2. hyperlipidemia. 3. Enlarged prostate. 4. Vitamin D deficiency. 5. Spondylosis of the lumbar spine. 6. Constipation. Patient Condition at Discharge: Serious Plan - Discharge Summary New Discharge Prescriptions: No Action Tamsulosin [Flomax] 0.4 mg PO HS Dutasteride [Avodart] 0.5 mg PO HS Zinc Sulfate [Orazinc] 25 mg PO DAILY Ascorbic Acid [Vitamin C] 500 mg PO DAILY Cholecalciferol [Vitamin D3 (25 Mcg = 1000 Iu)] 25 mcg PO DAILY Sennosides [Senokot] 8.6 - 17.2 mg PO DAILY PRN PRN Reason: Constipation Glucosamine Sulfate 1,000 mg PO DAILY polyethylene glycoL 3350 [Miralax] 17 gm PO DAILY PRN PRN Reason: Constipation HYDROcodone/APAP 5-325MG [[place]moaks 5-325] 0.5 tab PO QID Atorvastatin [Lipitor] 10 mg PO DAILY Discharge Medication List Dutasteride [Avodart] 0.5 mg PO HS 02/19/15 [History] Tamsulosin [Flomax] 0.4 mg PO HS 02/19/15 [History] Ascorbic Acid [Vitamin C] 500 mg PO DAILY 05/10/22 [History] Atorvastatin [Lipitor] 10 mg PO DAILY 05/10/22 [History] Cholecalciferol [Vitamin D3 (25 Mcg = 1000 Iu)] 25 mcg PO DAILY 05/10/22 [History] Glucosamine Sulfate 1,000 mg PO DAILY 05/10/22 [History] HYDROcodone/APAP 5-325MG [[place]mo[place] 5-325] 0.5 tab PO QID 05/10/22 [History] Sennosides [Senokot] 8.6 - 17.2 mg PO DAILY PRN 05/10/22 [History] Zinc Sulfate [Orazinc] 25 mg PO DAILY 05/10/22 [History] polyethylene glycoL 3350 [Miralax] 17 gm PO DAILY PRN 05/10/22 [History] Follow up Appointment(s)/Referral(s): Chris Almanza MD [STAFF PHYSICIAN] - 1 Week (Offices are closed. Please call to make a post hospital follow up appointment when offices open.) Jovana Silva MD [Primary Care Provider] - 1-2 days (Offices are closed. Please call to make a post hospital follow up appointment when offices open.) Rober Jaramillo MD [STAFF PHYSICIAN] - 1 Week (Offices are closed. Please call to make a post hospital follow up appointment when offices open.) Patient Instructions/Handouts: Pulmonary Embolism (DC), Deep Vein Thrombosis (DC)
--- NOTE | 2022-05-13 12:56 | P.PN ---
Subjective Progress Note Date: 05/13/22 Patient is seen today resting comfortably in bed watching TV. He denies increased shortness of breath or chest pain. He remains on room air without distress. Vital signs remained stable. He has been started on Eliquis for anticoagulation for DVT and bilateral pulmonary embolism status post EKOS. Carri ent states he is doing well and ready to go home. Objective - Vital Signs Vital signs: Vital Signs Temp 98.1 F 05/13/22 07:54 Pulse 60 05/13/22 07:54 Resp 18 05/13/22 07:54 BP 152/93 05/13/22 07:54 Pulse Ox 92 L 05/13/22 07:54 FiO2 2 05/11/22 00:00 Intake & Output 05/12/22 05/13/22 05/13/22 18:59 06:59 18:59 Intake Total 654.029 485 490 Output Total 1100 300 Balance -445.971 185 490 Intake: IV 200 10 0.9 @ 20 ml/hr 200 Invasive Line 1 10 Intake, IV Titration 54.029 Amount Heparin Sod,Pork in 0.45% 54.029 NaCl 25,000 unit In 0.45 % NaCl 1 250ml.bag @ 9.07 UNITS/KG/HR 6.993 mls/hr IV .Q24H SHERRI Rx#: [id number] Oral 400 485 480 Output: Urine 1100 300 Other: Voiding Method Urinal Urinal Urinal # Bowel Movements 1 - Exam PHYSICAL EXAM: VITAL SIGNS: Reviewed. GENERAL: Well-developed in no acute distress. HEENT: Head is normocephalic. Pupils are equal, round. Sclerae anicteric. Mucous membranes of the mouth are moist. NECK: Supple. No JVD or thyromegaly RESPIRATORY: Respirations even and unlabored. Lungs diminished to auscultation bilaterally. CARDIO: Regular rate and rhythm. S1 and S2 heard. No murmur or gallops. EXTREMITIES: Normal range of motion. No clubbing or cyanosis. Peripheral pulses intact. Negative for bilateral lower extremity edema NEURO: Orientated to person, time, mood is appropriate - Labs CBC & Chem 7: 05/13/22 05:07 05/13/22 05:07 Labs: Abnormal Lab Results - Last 24 Hours (Table) 05/13/22 05/13/22 Range/Units 05:07 05:07 RBC 4.27 L (4.30-5.90) m/uL Sodium 134 L (137-145) mmol/L Glucose 116 H (74-99) mg/dL Calcium 8.3 L (8.4-10.2) mg/dL Total Protein 5.9 L (6.3-8.2) g/dL Albumin 2.8 L (3.5-5.0) g/dL Assessment and Plan Assessment: Acute Bilateral pulmonary embolism status post EKOS Deep vein thrombosis Hyperlipidemia Plan: Continue with Eliquis for anticoagulation Continue with all other current cardiac medications Patient stable to be discharged home The above impression and plan of care have been discussed and directed by the signing physician. Nhung Santa, nurse practitioner, acting as scribe for signing physician.
== END 2022-05-13 12:03 | disposition home health service (06) | DRG 167 ==
LOC: EC 07:42 → 2SICU 10:20 → 3SCARD 05-12 17:42
PROVIDERS: ADMIT Internal Medicine; ATTEND Internal Medicine
PROC: 02FQ3Z0 Fragmentation of Right Pulmonary Artery, Percutaneous Approach, Ultrasonic (ICD-10-PCS; principal; 2022-05-10 15:40)
PROC: 02FR3Z0 Fragmentation of Left Pulmonary Artery, Percutaneous Approach, Ultrasonic (ICD-10-PCS; principal; 2022-05-10 15:40)
PROC: 4A023N6 Measurement of Cardiac Sampling and Pressure, Right Heart, Percutaneous Approach (ICD-10-PCS; principal; 2022-05-10 15:40)
PROC: 3E04317 Introduction of Other Thrombolytic into Central Vein, Percutaneous Approach (ICD-10-PCS; principal; 2022-05-10 15:40)
DX: I26.02 Saddle embolus of pulmonary artery with acute cor pulmonale (principal); I82.403 Acute embolism and thrombosis of unspecified deep veins of lower extremity, bilateral; I82.432 Acute embolism and thrombosis of left popliteal vein; E55.9 Vitamin D deficiency, unspecified; R77.8 Other specified abnormalities of plasma proteins; G47.00 Insomnia, unspecified; E78.2 Mixed hyperlipidemia; G89.29 Other chronic pain; I25.10 Atherosclerotic heart disease of native coronary artery without angina pectoris; I77.819 Aortic ectasia, unspecified site; K59.00 Constipation, unspecified; M47.816 Spondylosis without myelopathy or radiculopathy, lumbar region; M51.36 Other intervertebral disc degeneration, lumbar region; N40.0 Benign prostatic hyperplasia without lower urinary tract symptoms; Z79.899 Other long term (current) drug therapy; Z80.8 Family history of malignant neoplasm of other organs or systems; Z86.718 Personal history of other venous thrombosis and embolism
CPT/HCPCS: 36415; 37211; 71275; 74174; 80048; 80053; 81001; 82805; 83605; 83735; 83880; 84484; 85025; 85379; 85384; 85610; 85730; 93005; 93306; 93970; 96374; 96375; 96376; 99291

== ENCOUNTER 2022-07-28 19:37 | Emergency (ER) | payer MEDICARE ==
[2022-07-28 20:07] VITALS: BP 145/75; PULSE 61; RESP 18; TEMP 98.4
--- NOTE | 2022-07-28 20:09 | ED ---
Chest Pain HPI - General Source: patient Mode of arrival: ambulatory Limitations: no limitations - History of Present Illness MD Complaint: chest pain Onset/Timin -: week(s) Onset: during rest Pain Location: left chest Pain Radiation: back Severity: moderate Quality: aching Consistency: constant Improves With: nothing Worsens With: nothing Treatments Prior to Arrival: none <Osmel Ramirez - Last Filed: 07/28/22 20:55> <Sherwin Tiwari - Last Filed: 07/29/22 00:18> - General Chief Complaint: Chest Pain Stated Complaint: Chest pain/L sided weakness Time Seen by Provider: 07/28/22 19:55 - History of Present Illness Initial Comments: This patient is an 82-year-old man who is here to have evaluation for chest pain. He states that it is been present going back about 2 weeks. He indicates the left upper chest. He states that it has been more constant over the past day. It is otherwise not changed much. He has not noted any exertional component. No worsening or relieving factors. No associated symptoms. (Osmel Ramirez) - Related Data Home Medications Medication Instructions Recorded Confirmed Dutasteride [Avodart] 0.5 mg PO HS 02/19/15 07/28/22 Tamsulosin [Flomax] 0.4 mg PO HS 02/19/15 07/28/22 Ascorbic Acid [Vitamin C] 500 mg PO DAILY 05/10/22 07/28/22 Atorvastatin [Lipitor] 10 mg PO DAILY 05/10/22 07/28/22 Cholecalciferol [Vitamin D3 (25 25 mcg PO DAILY 05/10/22 07/28/22 Mcg = 1000 Iu)] HYDROcodone/APAP 5-325MG [[place] 1 tab PO TID 05/10/22 07/28/22 5-325] Zinc Sulfate [Orazinc] 25 mg PO DAILY 05/10/22 07/28/22 Apixaban [Eliquis] 5 mg PO BID 07/28/22 07/28/22 Docusate Sodium [Dok] 200 mg PO DAILY 07/28/22 07/28/22 Pantoprazole [Protonix] 40 mg PO DAILY 07/28/22 07/28/22 Allergies Allergy/AdvReac Type Severity Reaction Status Date / Time No Known Allergies Allergy Verified 07/28/22 21:49 Review of Systems ROS Other: All systems not noted in ROS Statement are negative. Constitutional: Denies: fever, chills Respiratory: Denies: cough, dyspnea Cardiovascular: Reports: as per HPI, chest pain. Denies: palpitations, edema, syncope Gastrointestinal: Denies: abdominal pain, nausea, vomiting, diarrhea, constipation Genitourinary: Denies: dysuria, hematuria Musculoskeletal: Denies: back pain Skin: Denies: rash Neurological: Denies: headache, weakness, numbness Psychiatric: Denies: anxiety <Osmel Ramirez - Last Filed: 07/28/22 20:55> ROS Other: All systems not noted in ROS Statement are negative. <Sherwin Tiwari - Last Filed: 07/29/22 00:18> ROS Statement: Those systems with pertinent positive or pertinent negative responses have been documented in the HPI. EKG Findings - EKG Results: EKG: interpreted by JENNI, sinus rhythm, normal axis, normal QRS, normal ST/T EKG shows: bradycardia (Rate 55 bpm) <AshelyOsmel - Last Filed: 07/28/22 20:55> Past Medical History Past Medical History: Prostate Disorder History of Any Multi-Drug Resistant Organisms: None Reported Past Surgical History: Hernia Repair Past Psychological History: No Psychological Hx Reported Past Alcohol Use History: None Reported Past Drug Use History: None Reported <Osmel Ramirez - Last Filed: 07/28/22 20:55> General Exam Limitations: no limitations General appearance: alert, in no apparent distress Head exam: Present: atraumatic, normocephalic Eye exam: Present: normal appearance. Absent: scleral icterus, conjunctival injection ENT exam: Present: normal oropharynx Neck exam: Present: normal inspection Respiratory exam: Present: normal lung sounds bilaterally. Absent: respiratory distress, wheezes, rales, rhonchi, stridor Cardiovascular Exam: Present: regular rate, normal rhythm, normal heart sounds. Absent: systolic murmur, diastolic murmur, rubs, gallop GI/Abdominal exam: Present: soft. Absent: distended, tenderness, guarding, rebound, rigid, mass Extremities exam: Present: normal inspection, normal capillary refill. Absent: pedal edema, calf tenderness Back exam: Present: normal inspection. Absent: CVA tenderness (R), CVA tenderness (L) Neurological exam: Present: alert Skin exam: Present: warm, dry, intact, normal color. Absent: rash <Osmel Ramirez - Last Filed: 07/28/22 20:55> Course Vital Signs 07/28/22 19:53 Temperature 98.4 F Pulse Rate 61 Respiratory 18 Rate Blood Pressure 145/75 O2 Sat by Pulse 95 Oximetry Chest Pain MDM <Sherwin Tiwari - Last Filed: 07/29/22 00:18> - [facility] Patient was signed out to me pending workup. Patient presents for ongoing chest pain for multiple weeks. Describes it as pressure, throbbing pain located over the left chest. Patient currently does not have it. Signed out to me pending cardiac workup. Does have a history of pulmonary embolus and currently on anticoagulation. CT angiogram was obtained in addition to cardiac workup. EKG showed no signs of acute ischemia. Laboratory studies remarkable for undetectable troponin. CT angiogram revealed no evidence of PE. Relatively normal exam. On reevaluation, patient remains asymptomatic. Vital signs are within normal limits. I discussed results with him and his . I do believe it is safer to be discharged home at this time, which is also the assessment of the prior emergency department physician. Patient will be discharged home in good condition with follow-up with his kiln pusher and PCP in the next 1-2 weeks. Strict return precautions were discussed. Heart score is low at 3. I instructed the patient to follow up with their PCP in the next 1-3 days. I explained that the patient should return to the emergency department if they experience any worsening symptoms. Strict return precautions were discussed with the patient. The patient expressed understanding of these instructions. I answered all questions that the patient had. The patient was discharged home in good condition with their prescriptions and follow up information. (Sherwin Tiwari) Disposition <AshleyOsmel - Last Filed: 07/28/22 20:55> Is patient prescribed a controlled substance at d/c from ED?: No Time of Disposition: 23:45 <Sherwin Tiwari - Last Filed: 07/29/22 00:18> Clinical Impression: Atypical chest pain Disposition: HOME SELF-CARE Condition: Good Instructions (If sedation given, give patient instructions): Chest Pain (ED) Referrals: Jovana Silva MD [Primary Care Provider] - 1-2 days
[2022-07-28 22:11] LABS: Basophils # (A) 0.1 k/uL (0-0.2); Basophils % (A) 2 %; Eosinophils # (A) 0.3 k/uL (0-0.7); Eosinophils % (A) 4 %; HCT 47.2 % (39.0-53.0); HGB 15.5 gm/dL (13.0-17.5); Lymphocytes # (A) 2.7 k/uL (1.0-4.8); Lymphocytes % (A) 37 %; MCH 30.9 pg (25.0-35.0); MCV 93.7 fL (80.0-100.0); Mean Platelet Volume 7.9; Monocytes # (A) 0.5 k/uL (0-1.0); Monocytes % (A) 7 %; Neutrophils # (A) 3.5 k/uL (1.3-7.7); Neutrophils % (A) 48 %; Platelet Count 268 k/uL (150-450); RBC 5.03 m/uL (4.30-5.90); RDW 13.6 % (11.5-15.5); WBC 7.4 k/uL (3.8-10.6)
[2022-07-28 22:18] LABS: ALT 32 U/L (4-49); AST 38 U/L (17-59); African American GFR (CKD) >90 (>60 ml/min/1.73 sqM); Albumin 3.8 g/dL (3.5-5.0); Alkaline Phosphatase 63 U/L (38-126); Anion Gap 11 mmol/L; Blood Urea Nitrogen 17 mg/dL (9-20); Calcium 9.1 mg/dL (8.4-10.2); Carbon Dioxide 22 mmol/L (22-30); Chloride 104 mmol/L (98-107); Glucose 101 mg/dL (74-99); Non-African American GFR(CKD) 82 (>60 ml/min/1.73 sqM); Sodium 137 mmol/L (137-145); Total Bilirubin 0.5 mg/dL (0.2-1.3); Total Protein 6.6 g/dL (6.3-8.2)
[2022-07-28 23:11] LABS: Partial Thromboplastin Time 24.6 sec (22.0-30.0); Prothrombin Time 10.7 sec (9.0-12.0)
--- NOTE | 2022-07-28 23:29 | CT ---
EXAMINATION TYPE: CT chest angio for PE DATE OF EXAM: 07/28/2022 COMPARISON: None HISTORY: pe CT DLP: 374.3 mGycm Automated exposure control for dose reduction was used. CONTRAST: Performed with IV Contrast, patient injected with 100 mL of Isovue 370. There are 3-D post processed images. There is some patchy atelectasis at the lung bases bilaterally. Heart size is normal. No pericardial effusion. No pleural effusion. There is no mediastinal adenopathy. There are no hilar masses. Thoracic aorta is intact. No aneurysm or dissection. There is no evidence of filling defect in the pulmonary arteries. The thoracic spine is intact. No compression fracture. Sternum is intact. The upper abdominal soft ti ssues are intact. IMPRESSION: No evidence of pulmonary embolism. Patchy atelectasis at the lung bases. No suspicious pulmonary mass.
== END 2022-07-29 00:20 | disposition home or self-care (01) ==
LOC: EC 19:37
DX: R07.89 Other chest pain (principal)
CPT/HCPCS: 36415; 93005; 80053; 84484; 85025; 85610; 85730; 71275; 99285; Q9967

== ENCOUNTER → 2022-08-23 | Day surgery (SDC) | payer MEDICARE ==
[~2022-08-23] MED LIST: ALPRAZolam 0.25 MG TAB PO PRN; ALPRAZolam 0.5 MG TAB PO PRN; ASPIRIN 325 MG TAB PO ONE; HEPARIN SODIUM 1,000 UN/ML (10ML VL) IV ONE; HEPARIN SODIUM 1,000 UN/ML (10ML VL) ONE; IOPAMIDOL-370 125ML BTL INJ ONE; LIDOCAINE 1% INJ 10MG/ML (30 ML VIAL-PF) SQ ONE; MIDAZOLAM 2 MG/2 ML VIAL IV ONE; NITROGLYCERIN SL TABS 0.4 MG TAB SUBLINGUAL PRN; RX INFO: IV CONTRAST WAS GIVEN 1 EACH MISC MISCELLANE PRN; SODIUM CHLORIDE 0.9% 1,000 ML IV ONE; SODIUM CHLORIDE 0.9% 1,000 ML IV SCH; SODIUM CHLORIDE 0.9% 1,000 ML in EMPTY BAG 1 BAG IV SCH; VERAPAMIL 2.5 MG/ML 2 ML AMP ONE; VERAPAMIL SYRINGE (5 MG/10 ML) INTRAARTER ONE
[2022-08-23 09:00] VITALS: RESP 16; TEMP 98.1
--- NOTE | 2022-08-23 09:58 | P.PCN ---
Date of Procedure: 08/23/22 Operative Findings: CARDIAC CATHETERIZATION PERFORMING PHYSICIAN: Rober Jaramillo MD, RPVI PROCEDURE PERFORMED: 1. Selective right and left coronary angiogram INDICATION: Chest discomfort in this 82-year-old gentleman who underwent myocardial perfusion imaging stress test revealed inferior ischemia COMPLICATION: None APPROACH: Right radial artery LEVEL OF SEDATION: Moderate with a sedation length of 14 minutes PROCEDURE DESCRIPTION: After obtaining an informed consent, the patient was brought to cardiac laborer demolition. Local anesthesia was performed using lidocaine subcutaneously. The right radial artery was cannulated using Seldinger technique, the guidewire passed easily, following that we advanced a 5-[place] sheath dilator assembly, the wire and dilator were removed and sheath was flushed. Following that, 2 mg of verapamil along with 5000 unit heparin were given. Selective right and left coronary angiogram using a 6-[place] JR4 and JL 3.5 catheters. The procedure was completed there was no complication. SELECTIVE CORONARY ANGIOGRAM: The right coronary artery: Large caliber vessel and a dominant vessel. The RCA is angiographically normal distally bifurcates into PDA and PLV branches both appeared to be angiographically normal Left main: Is angiographically normal. Bifurcates into a LCX and LAD The left circumflex: Large-caliber vessel and dominant vessel. The LCx is angiographically normal. Gives rises into an OM1 which is a large caliber vessel appears to be angiographically normal. The left anterior descending artery: The proximal LAD has a plaque appears to be in the range of 30%. Gives rises into a large diagonal branch which seems to be angiographically normal. The mid LAD is angiographically normal and gives rises into the second diagonal branch which seems to be angiographically normal. The LAD distally appears to be angiographically normal CONCLUSION: 1. Mild plaque involving the proximal LAD POSTPROCEDURE MANAGEMENT: Medical treatment and follow-up with the patient
[2022-08-23 14:22] VITALS: BP 123/56; PULSE 55
== END ==
LOC: CATHCVL 08:43
PROVIDERS: ATTEND Internal Medicine Interventional Cardiology
DX: I25.10 Atherosclerotic heart disease of native coronary artery without angina pectoris (principal); I08.0 Rheumatic disorders of both mitral and aortic valves; E78.5 Hyperlipidemia, unspecified; R55 Syncope and collapse; Z86.711 Personal history of pulmonary embolism; I77.810 Thoracic aortic ectasia; R00.1 Bradycardia, unspecified; Z20.822 Contact with and (suspected) exposure to COVID-19; Z79.899 Other long term (current) drug therapy
CPT/HCPCS: 93454; 87635; C1769 ×2; C1894; J2250; J2001; J1644; Q9967

== ENCOUNTER → 2023-06-27 | Outpatient (CLI) | payer MEDICARE ==
--- NOTE | 2023-06-27 10:23 | CT ---
EXAMINATION TYPE: CT lumbar spine wo con CT DLP: 1028 mGycm, Automated exposure control for dose reduction was used. DATE OF EXAM: 06/27/2023 9:16 AM COMPARISON: 10/19/2010, 05/10/2022. CLINICAL INDICATION:Male, 83 years old with history of M48.062 SPINAL STENOSIS, LUMBAR REGION WITH NE UROG; PHH, Spinal stenosis with neurogenic claudication TECHNIQUE: Multiple axial images were obtained from the midportion of T11 through the sacroiliac izabela nts. Soft tissue and bone windows in coronal and sagittal planes were obtained and reviewed. Contrast used: mL of , none. Oral contrast used: none. FINDINGS: Alignment: There are 5 lumbar type vertebral bodies with straightening of the alignment.. Bone: Multilevel degeneration changes throughout the spine with straightening of the spine. There i s post surgical changes at L3-L4. Facet joint arthropathy, osteophytes, disc desiccation, vacuum disc phenomenon and Schmorl's nodes are present. Hardware appears intact. Discs: T12-L1: No spinal canal or neural foraminal stenosis is identified. L1-L2: Facet joint arthropathy and disc bulging result with mild spinal canal stenosis and moderate t o severe bilateral neural foraminal stenosis. L2-L3: Facet joint arthropathy, osteophytes and disc bulging result in mild spinal canal stenosis and moderate bilateral neural foraminal stenosis. L3-L4: Post surgical changes of the spinal canal is patent. There is no significant neural foraminal stenosis. L4-L5: Postsurgical change with disc bulge and facet joint arthropathy. Spinal canal is patent. Ther e is moderate bilateral neural foraminal stenosis. L5-S1: Facet joint arthropathy and disc bulging result with mild spinal canal stenosis and moderate t o severe left and mild right bilateral neural foraminal stenosis. Other: Atherosclerosis of the arterial vasculature. IMPRESSION: 1. Post surgical changes with moderate to severe bilateral L1-L2, moderate to severe left L5-S1 and moderate bilateral L4-L5 neural foraminal stenosis. No evidence for significant spinal canal stenosis . 2. No evidence of fracture. 3. Postsurgical changes at L3-L4 with hardware intact.
== END | disposition home or self-care (01) ==
LOC: RADCTMAIN 08:41
PROVIDERS: ATTEND Internal Medicine
DX: M48.062 Spinal stenosis, lumbar region with neurogenic claudication (principal); M99.73 Connective tissue and disc stenosis of intervertebral foramina of lumbar region; Z98.890 Other specified postprocedural states
CPT/HCPCS: 72131

== ENCOUNTER → 2023-10-18 | Outpatient (CLI) | payer MEDICARE ==
--- NOTE | 2023-10-22 09:34 | CT ---
EXAMINATION TYPE: CT lumbar spine wo con CT DLP: 706.9 mGycm, Automated exposure control for dose reduction was used. DATE OF EXAM: 10/18/2023 4:09 PM COMPARISON: CT lumbar spine 06/27/2023. CLINICAL INDICATION:Male, 83 years old with history of M43.16 SPONDYLOLISTHESIS, M48.062; PHH, Follow up for recent L3-L4 fusion. TECHNIQUE: Multiple axial images were obtained from the midportion of T11 through the sacroiliac izabela nts. Soft tissue and bone windows in coronal and sagittal planes were obtained and reviewed. 3-D ref ormats of the bones were created on a separate workstation and submitted for review. Contrast used: mL of , none. Oral contrast used: none. FINDINGS: Alignment: There are 5 lumbar type vertebral bodies within normal alignment. Bone: No evidence of fracture is identified. Postsurgical changes to the spine involving L3-L4 hardw are appears intact. Discectomy at this level. Discs: No evidence for significant spinal canal stenosis. There is facet joint arthropathy and neural foraminal stenosis worse at L5-S1 on the left with severe L4-L5 with right with moderate to severe b ilaterally and moderate L1-L2 and L2-L3 bilaterally. Moderate bilateral L1-L2 neural foraminal stenos is. Other: Atherosclerosis of the arterial vasculature. IMPRESSION: 1. No significant change from prior, Post surgical changes with hardware intact. 2. Multilevel degeneration changes with neural foraminal stenosis worse at L5-S1 on the left and L4- L5 with moderate to severe bilaterally.
== END | disposition home or self-care (01) ==
LOC: RADCTMAIN 15:54
PROVIDERS: ATTEND Internal Medicine
DX: M43.16 Spondylolisthesis, lumbar region (principal); M48.062 Spinal stenosis, lumbar region with neurogenic claudication; M99.73 Connective tissue and disc stenosis of intervertebral foramina of lumbar region; M51.36 Other intervertebral disc degeneration, lumbar region; Z98.890 Other specified postprocedural states
CPT/HCPCS: 72131

== ENCOUNTER → 2023-11-11 | Outpatient (CLI) | payer MEDICARE ==
--- NOTE | 2023-11-11 13:38 | XR ---
EXAM TYPE: LUMBAR SPINE X RAY SERIES COMPARISON: 10/18/2020 HISTORY: Pain TECHNIQUE: 7 views are submitted including flexion and extension lateral views. FINDINGS: Postsurgical changes L3-L4 appears stable relative to prior. There is a slight curve to the spine wit h multilevel moderate to generative disc disease. Severe changes at L4-5 and L5-S1 facet arthropathy and suspected bilateral foramen. There is straightening of the lumbar spine with loss of normal lordosis minimal anterolisthesis L2 re lative to L3 minimally corrects on extension. Radiopaque calcification or density adjacent to the L4- L5 disc space in the right. IMPRESSION: 1. Stable postsurgical change L3-L4. 2. Multilevel degenerative disc disease most marked at levels L4-5 and L5-S1 with suspected bilateral foraminal protrusion
== END | disposition home or self-care (01) ==
LOC: RADXRMAIN 13:06
PROVIDERS: ATTEND Internal Medicine
DX: M43.16 Spondylolisthesis, lumbar region (principal); M51.37 Other intervertebral disc degeneration, lumbosacral region; M51.36 Other intervertebral disc degeneration, lumbar region; M48.062 Spinal stenosis, lumbar region with neurogenic claudication
CPT/HCPCS: 72114

== ENCOUNTER → 2024-04-09 | Outpatient (CLI) | payer MEDICARE ==
[2024-04-09 10:06] LABS: African American GFR (CKD) >90 (>60 ml/min/1.73 sqM); Blood Urea Nitrogen 22 mg/dL (9-20); Non-African American GFR(CKD) 80 (>60 ml/min/1.73 sqM)
--- NOTE | 2024-04-09 11:47 | CT ---
EXAMINATION TYPE: CT abdomen pelvis w con DATE OF EXAM: 04/09/2024 COMPARISON: None HISTORY: cyst on right hip no pain associated CT DLP: 1443 mGycm CONTRAST: CT scan of the abdomen and pelvis is performed with Oral Contrast and with IV Contrast, patient injec huong with 100 mL of Isovue 300. FINDINGS: LUNG BASES-: No visible nodule. No infiltrate. LIVER/GB: No calcified gallstones. No space occupying hepatic lesion. Biliary tree is of normal ca liber. PANCREAS: No inflammation. No distinct mass. SPLEEN: No splenic enlargement. No lesion seen. ADRENALS: No nodule. No thickening. KIDNEYS/BLADDER: No hydronephrosis. No nephrolithiasis. No distinct renal mass. Within the urinary bladder there are large calcifications seen totalling 3 in number measuring 1.2 cm, 1.2 cm and 0.7 c m respectively. BOWEL: Normal appendix. Normal bowel caliber. No inflammation. GENITAL ORGANS: No gross abnormality. LYMPH NODES: No greater than 1cm abdominal or pelvic lymph nodes are appreciated. AORTA: No significant abnormality. OSSEOUS STRUCTURES: No significant abnormality is seen. OTHER: No significant additional abnormality is seen. IMPRESSION: 1. Within the urinary bladder there are large calcifications seen totalling 3 in number measuring 1.2 cm, 1.2 cm and 0.7 cm respectively.
== END | disposition home or self-care (01) ==
LOC: RADCTMAIN 09:13
PROVIDERS: ATTEND Internal Medicine
DX: D36.0 Benign neoplasm of lymph nodes (principal); N21.0 Calculus in bladder; N32.89 Other specified disorders of bladder
CPT/HCPCS: 82565; 84520; 74177; 36415; Q9967

== ENCOUNTER → 2024-05-12 | Outpatient (CLI) | payer MEDICARE ==
[2024-05-12 18:26] LABS: Appearance,Urine Clear (Clear); Bilirubin,Urine Negative (Negative); Blood,Urine Negative (Negative); Color,Urine Yellow (Yellow); Ketones,Urine Negative (Negative); Nitrite,Urine Negative (Negative); PH, Urine 6.5; Specific Gravity,Urine 1.009 (1.001-1.030); Urobilinogen,Urine 0.2 E.U./DL
[2024-05-12 19:12] LABS: Basophils # (A) 0.07 X 10*3/uL (0.00-0.10); Basophils % (A) 1.1 %; Eosinophils % (A) 3.1 %; HCT 48.1 % (39.6-50.0); HGB 15.1 g/dL (13.0-17.0); Lymphocytes # (A) 2.54 X 10*3/uL (0.90-5.00); Lymphocytes % (A) 39.7 %; MCH 30.5 pg (27.0-32.0); MCHC 31.4 g/dL (32.0-37.0); MCV 97.2 FL (80.0-97.0); Mean Platelet Volume 11.4 FL (9.5-12.2); Monocytes # (A) 0.54 X 10*3/uL (0.20-1.00); Monocytes % (A) 8.4 %; NRBC Per 100 WBC 0 X 10*3/uL (0.00-0.01); Neutrophils # (A) 3.04 X 10*3/uL (1.80-7.70); Neutrophils % (A) 47.5 %; Platelet Count 277 X 10*3/uL (140-440); RBC 4.95 X 10*6/uL (4.40-5.60); RDW 13.2 % (11.5-14.5)
[2024-05-12 19:15] LABS: Blood Urea Nitrogen 15.5 mg/dL (9.0-27.0); Calcium 9.7 mg/dL (8.7-10.3); Carbon Dioxide 24.8 mmol/L (21.6-31.8); Chloride 104 mmol/L (96-109); Glucose 108 mg/dL (70-110); Potassium 4.4 mmol/L (3.5-5.5); Sodium 142 mmol/L (135-145)
== END | disposition home or self-care (01) ==
LOC: LABPAT 12:47
PROVIDERS: ATTEND Urology
DX: Z01.812 Encounter for preprocedural laboratory examination (principal); N21.0 Calculus in bladder
CPT/HCPCS: 80048; 81003; 85025; 87086

== ENCOUNTER 2024-05-19 07:59 | Day surgery (SDC) | payer MEDICARE ==
[2024-05-19] MEDS ORDERED: LIDOCAINE 1% (10MG/ML) FOR IV START INTRADERMA PRN (08:26)
[2024-05-19] MEDS ORDERED: HYDROmorphone 0.5 MG/0.5 ML SYRINGE IVP PRN (08:26)
[2024-05-19] MEDS ORDERED: MIDAZOLAM 2 MG/2 ML VIAL IV PRN (08:26)
[2024-05-19] MEDS ORDERED: fentaNYL (PF) 50 MCG/ML 2 ML AMP IVP PRN (08:26)
[2024-05-19] MEDS: LACTATED RINGERS 1,000 ML IV SCH (08:53)
[2024-05-19] MEDS: ONDANSETRON 4 MG/2 ML VIAL IVP ONE (08:53)
[2024-05-19] MEDS: DEXAMETHASONE SOD PHOSPHATE 4 MG/ML 1 ML VIAL IV ONE (08:53)
[2024-05-19] MEDS: IV FLUID CONTINUATION 1,000 ML IV ONE (08:53)
--- NOTE | 2024-05-19 08:56 | P.HPIHPCON ---
History of Present Illness H&P Date: 05/19/24 Chief Complaint: Bladder stones This is an 84-year-old male with history of 3 large bladder stones within the bladder, total stone burden is greater than 3 cm. He is having intermittent symptoms. Option of observation versus removal were discussed in details. He agreed to proceed with cystolitholapaxy, aware the risk which includes but not limited to bleeding, infection, injury to the bladder Consent for Procedure: I have explained the operation/procedure to the patient, including the risks, benefits, side effects, alternative therapies (including not receiving the proposed treatment or service), the likelihood of the patient achieving his/her goals, and potential recuperation problems for the procedure/sedation/analgesia, as well as any blood products, if indicated. I also explained to the patient the risks, benefits and side effects of the alternatives, as well as the risks related to not receiving the proposed procedure, care, treatment, or services. Past Medical History Past Medical History: Hyperlipidemia, Prostate Disorder, Pulmonary Embolus (PE) Additional Past Medical History / Comment(s): ER visit for chest discomfort on the left side per pt. PE 05/16( [facility]). herniated disc in back. hx precancerous spot tx. Covid 03/16( [place]) History of Any Multi-Drug Resistant Organisms: None Reported Past Surgical History: Back Surgery, Hernia Repair Additional Past Surgical History / Comment(s): abdominal hernia repair. L3-4 fusion Past Anesthesia/Blood Transfusion Reactions: No Reported Reaction Smoking Status: Never smoker - Past Family History Father Family Medical History: Coronary Artery Disease (CAD) Sister(s) Family Medical History: Coronary Artery Disease (CAD) Brother(s) Family Medical History: Myocardial Infarction (ME) Mother Additional Family Medical History / Comment(s): brain tumor. Medications and Allergies Home Medications Medication Instructions Recorded Confirmed Type Dutasteride [Avodart] 0.5 mg PO HS 02/19/15 05/19/24 History Tamsulosin [Flomax] 0.4 mg PO HS 02/19/15 05/19/24 History Ascorbic Acid [Vitamin C] 500 mg PO DAILY 05/10/22 05/19/24 History Atorvastatin [Lipitor] 20 mg PO DAILY 05/10/22 05/19/24 History Cholecalciferol [Vitamin D3 (25 25 mcg PO DAILY 05/10/22 05/19/24 History Mcg = 1000 Iu)] Apixaban [Eliquis] 5 mg PO BID 07/28/22 05/19/24 History Allergies Allergy/AdvReac Type Severity Reaction Status Date / Time No Known Allergies Allergy Verified 05/19/24 08:27 Surgical - Exam Vital Signs Temp Pulse Resp BP Pulse Ox 97.4 F L 58 L 18 141/65 95 05/19/24 08:41 05/19/24 08:41 05/19/24 08:41 05/19/24 08:41 05/19/24 08:41 - General no distress, no pain - Eyes normal ocular movement, no pale - ENT normal nares, normal mucosa - Respiratory normal expansion, normal respiratory effort - Abdomen Abdomen: soft, non tender - Psychiatric oriented to time, oriented to person, oriented to place Assessment and Plan Assessment: OR for cystolitholapaxy
[2024-05-19] MEDS ORDERED: PROPOFOL 10 MG/ML 20 ML VIAL IV ONE (09:10)
[2024-05-19] MEDS ORDERED: fentaNYL (PF) 50 MCG/ML 2 ML AMP ONE (09:10)
[2024-05-19] MEDS ORDERED: LIDOCAINE 1% INJ 10MG/ML (20 ML MDV) ONE (09:10)
[2024-05-19] MEDS ORDERED: GLYCOPYRROLATE 0.2 MG/ML 2 ML VIAL ONE (09:10)
[2024-05-19] MEDS ORDERED: PHENYLEPHRINE-0.9% NACL SYG 1,000 MCG/10 ML SYRINGE ONE (09:10)
[2024-05-19 10:16] VITALS: RESP 16; TEMP 97.2
--- NOTE | 2024-05-19 10:31 | P.OP ---
Date of Procedure: 05/19/24 Preoperative Diagnosis: Bladder stone Postoperative Diagnosis: Same Procedure(s) Performed: Cystoscopy, cystolitholapaxy >2.5cm Implants: none Anesthesia: CHRISTIAN Surgeon: David Macdonald Estimated Blood Loss (ml): 10 Pathology: other (bladder stone) Condition: stable Disposition: PACU Indications for Procedure: This is an 84-year-old male with history of 3 large bladder stones within the bladder, total stone burden is greater than 3 cm. He is having intermittent symptoms. Option of observation versus removal were discussed in details. He agreed to proceed with cystolitholapaxy, aware the risk which includes but not limited to bleeding, infection, injury to the bladder Operative Findings: 3 large stones within the bladder Description of Procedure: Patient brought the operating room, general anesthesia was induced. He was prepped and draped in sterile fashion placed in dorsolithotomy position. Cystoscopy fitted with a 21 [place] sheath was inserted per urethra, cystoscopy was performed which showed a moderately trabeculated bladder with 3 large bladder stones, of note patient had enlargement of the median lobe with intravesical extension. Next using the holmium laser the stones were fragmented, stone fragments were irrigated out using the cystoscope. Repeat cystoscopy showed no sizable fragments or injury to the bladder, there was no evidence of bleeding. Bladder was emptied at the end of the case. Patient tolerated procedure well was taken recovery in stable condition
[2024-05-19 11:29] VITALS: BP 118/74; PULSE 62
== END 2024-05-19 11:40 | disposition home or self-care (01) ==
LOC: OR 07:59
PROVIDERS: ATTEND Urology
DX: N21.0 Calculus in bladder (principal); N32.89 Other specified disorders of bladder; N40.0 Benign prostatic hyperplasia without lower urinary tract symptoms; Z86.711 Personal history of pulmonary embolism; E78.5 Hyperlipidemia, unspecified; Z79.899 Other long term (current) drug therapy; Z79.01 Long term (current) use of anticoagulants
CPT/HCPCS: 82365; 52318; C1894; C1769; J1100; J0690; J2405; J2001; J3010; J2704; J2371

== ENCOUNTER → 2025-06-07 | Outpatient (CLI) | payer MEDICARE ==
--- NOTE | 2025-06-07 15:07 | US ---
EXAMINATION TYPE: US venous doppler duplex LE BI DATE OF EXAM: 06/07/2025 2:57 PM COMPARISON: US CLINICAL INDICATION: Male, 85 years old with history of R60.0 LOCALIZED EDEMA; Pt states edema, more to right leg, prior DVT left leg, currently on blood thinners TECHNIQUE: The lower extremity deep venous system is examined utilizing real time linear array sonog mirela with graded compression, color doppler sonography, and spectral doppler. Right Leg: Negative for DVT, Color Doppler imaging shows patency of the vessels. Spectral waveforms are within normal limits. Left Leg: Negative for DVT, Color Doppler imaging shows patency of the vessels. Spectral waveforms a re within normal limits. IMPRESSION: No ultrasound evidence for deep venous thrombosis. [facility], , 06/07/2025 3:05 PM
== END | disposition home or self-care (01) ==
LOC: RADUSWWP 14:28
PROVIDERS: ATTEND Internal Medicine
DX: R60.0 Localized edema (principal)
CPT/HCPCS: 93970